=== PATIENT | male | born 1945 | race African-American/Black ===

== ENCOUNTER 2019-09-04 23:58 | Inpatient (IN) | payer MEDICARE, MEDICAID ==
[~2019-09-04] VITALS: Ht 193 cm; Wt 88.2 kg
--- NOTE | 2019-09-05 00:09 | Emergency Room Report ---
History of Present Illness General Chief Complaint: Dyspnea/Respdistress Source: Patient Present Illness HPI Disclaimer: Please note that this report is being documented using DRAGON technology. This can lead to erroneous entry secondary to incorrect interpretation by the dictating instrument. HPI: 74-year-old male with a history of CAD, CHF status post AICD, hypertension , hyperlipidemia, emphysema presents for evaluation of shortness of breath. Symptoms began approximately 24 hours ago. Notes worsening shortness of breath over the past day without chest pain or palpitations. Feels that he cannot catch a deep breath. Notes a new nonproductive cough over the past few days without fever or chills. Denies any nasal congestion, sore throat. Has been compliant with his Lasix. Does note lower extremity pitting edema worsening over the past week. Has been without his nebulizer machine for some time. PMH: Hypertension, hyperlipidemia, CAD, CHF PSH: Hemicolectomy, AICD placement Allergies: Lisinopril Social Hx: Former smoker Allergies: Coded Allergies: LISINOPRIL (Verified Allergy, Unknown, 09/04/19) Nursing Documentation-PMH Past Medical History: No History, Except For Hx Cardiac Problems: Yes - Pacemaker Hx Hypertension: Yes Review of Systems All Other Systems: negative except mentioned in HPI Physical Exam Vital Signs Date Time Temp Pulse Resp B/P (MAP) Pulse Ox O2 Delivery O2 Flow Rate FiO2 09/04/19 23:53 98.2 91 18 110/81 (91) 98 Room Air General: Awake and alert, no acute distress HEENT: NC/AT. EOMI. Chest wall: AICD palpable in left upper chest. No tenderness Cardiovascular: RRR. S1 and S2 normal. No murmur appreciated Resp: Mild tachypnea. Normal work of breathing. No cough, wheezing or crackles appreciated Abdomen: Abdomen is soft, nondistended. Nontender Skin: Intact. No abrasions, laceration or rash over the exposed skin MSK: Normal tone and bulk. Moving all extremities. No obvious deformity. Neuro: Awake and alert. Mentating appropriately. Medical Decision Making Diagnostic Impression: Primary Impression: ASHLEY (acute kidney injury) Additional Impressions: CHF exacerbation Hypokalemia ER Course 74-year-old male with history of CAD, CHF, emphysema presents for evaluation of shortness of breath and worsening pedal edema over the 1 week. Differential includes but is not limited to CHF exacerbation, COPD exacerbation, ACS, pneumonia, bronchitis, viral syndrome, asthma exacerbation. Arrives with stable vital signs and is chest pain-free. Received 1 DuoNeb en route with improvement. We will start broad metabolic infectious work-up. Will obtain EKG , x-ray, labs including troponin and BN peptide. We will treat with 40 mg Lasix given his pedal edema and his shortness of breath. Laboratory Tests Test 09/05/19 00:09 White Blood Count 7.4 K/UL (4.8-10.8) Red Blood Count 4.45 M/UL (4.70-6.10) L Hemoglobin 12.4 G/DL (14.2-18.0) L Hematocrit 37.7 % (42.0-52.0) L Mean Corpuscular Volume 85 FL (80-99) Mean Corpuscular Hemoglobin 27.9 PG (27.0-31.0) Mean Corpuscular Hemoglobin Concent 32.9 G/DL (32.0-36.0) Red Cell Distribution Width 15.6 % (11.6-14.8) H Platelet Count 255 K/UL (150-450) Mean Platelet Volume 7.1 FL (6.5-10.1) Neutrophils (%) (Auto) 59.9 % (45.0-75.0) Lymphocytes (%) (Auto) 24.8 % (20.0-45.0) Monocytes (%) (Auto) 10.7 % (1.0-10.0) H Eosinophils (%) (Auto) 3.3 % (0.0-3.0) H Basophils (%) (Auto) 1.3 % (0.0-2.0) Sodium Level 139 MMOL/L (136-145) Potassium Level 2.8 MMOL/L (3.5-5.1) L Chloride Level 101 MMOL/L (98-107) Carbon Dioxide Level 29 MMOL/L (21-32) Anion Gap 9 mmol/L (5-15) Blood Urea Nitrogen 21 mg/dL (7-18) H Creatinine 1.6 MG/DL (0.55-1.30) H Estimate Glomerular Filtration Rate mL/min (>60) Glucose Level 90 MG/DL (74-106) Calcium Level 9.3 MG/DL (8.5-10.1) Total Bilirubin 1.0 MG/DL (0.2-1.0) Aspartate Amino Transferase (AST) 41 U/L (15-37) H Alanine Aminotransferase (ALT) 37 U/L (12-78) Alkaline Phosphatase 176 U/L (46-116) H Troponin I 0.036 ng/mL (0.000-0.056) Pro-B-Type Natriuretic Peptide 6350 pg/mL (0-125) H Total Protein 7.2 G/DL (6.4-8.2) Albumin 3.4 G/DL (3.4-5.0) Globulin 3.8 g/dL Albumin/Globulin Ratio 0.9 (1.0-2.7) L EKG Diagnostic Results EKG Time: 00:10 Rate: normal Rhythm: other - Paced Other Impression Paced rhythm, normal rate Rhythm Strip Diag. Results Rhythm Strip Time: 00:10 EP Interpretation: yes Rate: 70s Rhythm: other - Paced rhythm Chest X-Ray Diagnostic Results Chest X-Ray Diagnostic Results : Chest X-Ray Ordered: Yes # of Views/Limited/Complete: 1 View Indication: Shortness of Breath EP Interpretation: Yes Interpretation: no consolidation, other - Bilateral interstitial edema. Possible small effusions bilaterally. Impression: Other - Interstitial edema. Reevaluation Time: 01:09 Last Vital Signs Date Time Temp Pulse Resp B/P (MAP) Pulse Ox O2 Delivery O2 Flow Rate FiO2 09/04/19 23:53 98.2 91 18 110/81 (91) 98 Room Air Reevaluation Impression Chest x-ray consistent with CHF exacerbation. EKG is paced therefore difficult to interpret ischemia. Troponin at 0.036 and the patient is chest pain free. Peptide elevated at 6300. Labs also show an acute kidney injury with a creatinine of 1.6 and a BUN of 21 as well as a hypokalemia with a potassium of 2.8. Patient received Lasix on arrival and will give potassium oral supplements at this time. Diuresing well. Vital signs improving. No longer tachycardic or tachypneic. Patient will be admitted to telemetry for treatment Disposition: ADMITTED INPATIENT Condition: Serious Obinna Cordova MD Sep 05, 2019 00:09
--- NOTE | 2019-09-05 00:10 | NUR ---
ED Nurse Note: pt presents to ED via ambulance RA 69 c/o dyspnea and SOB x 1 day. pt states that he uses a nebulizer but did not have access to one today when the SOB started. pt also has bilat swelling of lower extremities. pt denies any px, N/V/D, or fevers. pt has bilat wheezes heard on auscultation, pedal pulses of lower extremities were palpable but weak.
--- NOTE | 2019-09-05 00:20 | NUR ---
ED Nurse Note: pt also c/o L side px in the area of an operation he had in 2009. pt reports that the px is chronic and that it comes and goes
[2019-09-05 00:24] VITALS: BP 110/81
[2019-09-05] MEDS ORDERED: ISOSORBIDE DINI40 MG ORAL (00:28)
[2019-09-05] MEDS ORDERED: ESCITALOPRAM OX20 MG ORAL (00:28)
[2019-09-05] MEDS ORDERED: CARVEDILOL3.125 MG ORAL (00:28)
[2019-09-05] MEDS ORDERED: ELIQUIS5 MG PO ×2 (00:28→05:31)
[2019-09-05] MEDS ORDERED: FUROSEMIDE40 MG ORAL (00:28)
[2019-09-05] MEDS ORDERED: ONDANSETRON ODT4 MG BC (00:28)
[2019-09-05] MEDS ORDERED: METOLAZONE2.5 MG PO ×2 (00:28→05:31)
[2019-09-05] MEDS ORDERED: CATAPRES0.1 MG ORAL (00:28)
[2019-09-05] MEDS ORDERED: KLOR-CON M2020 MEQ ORAL (00:28)
[2019-09-05 00:41] LABS: BASOPHILS % (AUTO) 1.3 % (0.0-2.0); EOSINOPHILS % (AUTO) 3.3 % (0.0-3.0); HEMATOCRIT 37.7 % (42.0-52.0); HEMOGLOBIN 12.4 G/DL (14.2-18.0); LYMPHOCYTES % (AUTO) 24.8 % (20.0-45.0); MEAN CORPUSCULAR VOLUME 85 FL (80-99); MONOCYTES % (AUTO) 10.7 % (1.0-10.0); NEUTROPHILS % (AUTO) 59.9 % (45.0-75.0); PLATELET COUNT 255 K/UL (150-450); RED BLOOD COUNT 4.45 M/UL (4.70-6.10); RED CELL DISTRIBUTION WIDTH 15.6 % (11.6-14.8); WHITE BLOOD COUNT 7.4 K/UL (4.8-10.8)
[2019-09-05 00:50] LABS: ALANINE AMINOTRANSFERASE 37 U/L (12-78); ALBUMIN 3.4 G/DL (3.4-5.0); ALBUMIN/GLOBULIN RATIO 0.9 (1.0-2.7); ALKALINE PHOSPHATASE 176 U/L (46-116); ANION GAP 9 mmol/L (5-15); ASPARTATE AMINO TRANSFERASE 41 U/L (15-37); BLOOD UREA NITROGEN 21 mg/dL (7-18); CALCIUM 9.3 MG/DL (8.5-10.1); CARBON DIOXIDE 29 MMOL/L (21-32); CHLORIDE 101 MMOL/L (98-107); CREATININE 1.6 MG/DL (0.55-1.30); POTASSIUM 2.8 MMOL/L (3.5-5.1); SODIUM 139 MMOL/L (136-145)
[2019-09-05 02:31] VITALS: BP 102/68
--- NOTE | 2019-09-05 02:31 | NUR ---
ED Nurse Note: pt is in his bed with his eyes closed, he does not appear to be in any distress at this time. breathing is even and non-labored, VSS. will continue to monitor
--- NOTE | 2019-09-05 03:59 | NUR ---
ED Nurse Note: report given to STEPHANI Rizvi. will bring pt up in 5 minutes per request of RN to prepare room
--- NOTE | 2019-09-05 04:10 | NUR ---
NURSE NOTES: received pt from Jewels STYLES from ER department. pt is AO x4, and VSS (RA 95%, BP 112/85, RR 20, HR 85). monitoring engineer on, changed gown, belonging list checked and pt signed paper.Bilateral lung sounds clear and diminished on bases. bilateral hands warehouseman are 4/5, pt able to ambulates to the toilet. bed at the lowest position, alarmed, and locked. call light within reach. will continue to monitor pt with plan of care.
--- NOTE | 2019-09-05 04:32 | NUR ---
NURSE NOTES: left message to Dr. Felder to obtain the admission orders. will wait for call back.
[2019-09-05] MEDS ORDERED: ZUPLENZ4 M1 ORAL (05:31)
[2019-09-05] MEDS ORDERED: CLONIDINE HCL0.1 MG PO (05:31)
[2019-09-05] MEDS ORDERED: MIRTAZAPINE15 M3 ORAL (05:31)
[2019-09-05] MEDS ORDERED: LEXAPRO20 MG ORAL (05:31)
[2019-09-05] MEDS ORDERED: ISOSORBIDE DINIT5 MG ORAL (05:31)
[2019-09-05] MEDS ORDERED: POTASSIUM CHLO20 ME2 ORAL (05:31)
[2019-09-05 06:13] LABS: ALANINE AMINOTRANSFERASE 31 U/L (12-78); ALBUMIN 3.1 G/DL (3.4-5.0); ALBUMIN/GLOBULIN RATIO 0.9 (1.0-2.7); ALKALINE PHOSPHATASE 154 U/L (46-116); ANION GAP 10 mmol/L (5-15); ASPARTATE AMINO TRANSFERASE 34 U/L (15-37); BILIRUBIN,TOTAL 1.2 MG/DL (0.2-1.0); BLOOD UREA NITROGEN 20 mg/dL (7-18); CALCIUM 9.2 MG/DL (8.5-10.1); CARBON DIOXIDE 27 MMOL/L (21-32); CHLORIDE 102 MMOL/L (98-107); CREATININE 1.4 MG/DL (0.55-1.30); SODIUM 139 MMOL/L (136-145)
[2019-09-05 06:17] LABS: POTASSIUM 2.4 MMOL/L (3.5-5.1)
[2019-09-05 06:20] LABS: BILIRUBIN,DIRECT 0.5 MG/DL (0.0-0.3)
--- NOTE | 2019-09-05 06:32 | NUR ---
NURSE NOTES: left voice mail regarding low potassium 2.4 critical result and magnesium 1.5. will wait for call back.
--- NOTE | 2019-09-05 06:56 | NUR ---
NURSE NOTES: Dr. Hoffman aware pt is on Kdur 40meq x2 aday. and still Dr. Hoffman wants to admisniter 80meq Kdur extra today. noted and will carry out.
--- NOTE | 2019-09-05 07:33 | NUR ---
NURSE NOTES: RECEIVED REPORT FROM VIKTORIA HERNANDEZ RN. PT IN BED, AWAKENS TO NAME, A/OX4. NO C/O PAIN, MILD SOB, SATING MID 90'S. AFEBRILE. V PACED, AICD. ON MONITOR. DIMINISHED BILATERAL BREATH SOUNDS. ABDOMEN FLAT, BOWEL SOUNDS PRESENT. URINAL AT BEDSIDE. SKIN INTACT. RT FA 20G, TKO CALL LIGHT IN REACH. WILL CONTINUE TO MONITOR PT.
--- NOTE | 2019-09-05 07:34 | NUR ---
HAND-OFF: Report given to Rachel Laura RN. pt is in stable condition.
[2019-09-05 08:00] VITALS: BP 105/70
[2019-09-05] MEDS: Carvedilol 6.25mg Tab ORAL SCH ×2 (09:00→22:18)
[2019-09-05] MEDS: Eliquis 5mg tablet ORAL SCH ×2 (09:02→17:03)
[2019-09-05 10:26] LABS: CHOLESTEROL 153 MG/DL (< 200); HDL CHOLESTEROL 56 MG/DL (40-60); TRIGLYCERIDES 71 MG/DL (30-150)
--- NOTE | 2019-09-05 10:30 | NUR ---
NURSE NOTES: MD NUGENT, HERE TO SEE PT. WILL PLACE OWN ORDER. INFORM OF TROPOIN TREND 0.040, K 2.4 MG 15
--- NOTE | 2019-09-05 11:00 | NUR ---
NURSE NOTES: SHADY CLAROS HERE TO DO 2 D ECHO
[2019-09-05] MEDS: Albuterol/Ipratropium 3ml neb HHN SCH ×4 (11:15→23:13)
--- NOTE | 2019-09-05 11:41 | Diagnostic Imaging Report ---
Indication: Shortness of breath for one day Technique: One view of the chest Comparison: none Findings: There is cardiomegaly. There is a left chest bifocal AICD. There is evidence of prior chest surgery. There is bilateral diffuse interstitial congestion. The pleural spaces are clear. Impression: Cardiomegaly and diffuse bilateral interstitial edema Other findings as noted
[2019-09-05 12:00] VITALS: BP 123/68
--- NOTE | 2019-09-05 12:30 | NUR ---
NURSE NOTES: CALLED MD NUGENT REGARDING PT ABG RESULTS , NO NEW ORDERS AT THI TIME.
--- NOTE | 2019-09-05 15:00 | History and Physical Report ---
DATE OF ADMISSION: 09/05/2019 CHIEF COMPLAINT: CHF exacerbation. HISTORY OF PRESENT ILLNESS: The patient is a 74-year-old male. He has a history of hypertensive heart disease, congestive heart failure, and COPD, presented with complaints of two to three days of progressive shortness of breath. According to the patient, he has had worsening shortness of breath for the last several days. He denies any fever or chills. He has had no cough. He denies any medication or dietary noncompliance. On evaluation in the emergency room, his natriuretic peptide level was elevated at 6300. He had x-ray evidence of pulmonary edema. He has been started on intravenous Lasix and is now admitted for further evaluation and care. PAST MEDICAL HISTORY: As above. PAST SURGICAL HISTORY: Includes a pacemaker. CURRENT MEDICATIONS: Reconciled and reviewed. ALLERGIES: Include KARIME inhibitors. FAMILY HISTORY: Noncontributory. SOCIAL HISTORY: The patient was a previous smoker but quit. No alcohol. No drugs. REVIEW OF SYSTEMS: GENERAL: No fever or chills. HEENT: No headaches or visual changes. CARDIOPULMONARY: No chest pain. Positive shortness of breath. No cough. GASTROINTESTINAL: No nausea or vomiting. GENITOURINARY: No urgency or frequency. MUSCULOSKELETAL: No joint pain or swelling. NEUROLOGIC: No evidence of seizures. PHYSICAL EXAMINATION: VITAL SIGNS: Temperature is 98 degrees, blood pressure 110/81, pulse 91, and respirations 18. GENERAL: The patient is well developed, in no apparent distress. HEART: Regular rate and rhythm. LUNGS: Significant diminished breath sounds at the bases. ABDOMEN: Soft, nontender, and nondistended. EXTREMITIES: Significant for 1+ pitting edema. LABORATORY AND DIAGNOSTIC DATA: Labs show sodium 139, potassium 2.8, chloride 101, bicarb 29, BUN 21, and creatinine 1.6. Natriuretic peptide level is 6300. Troponin is 0.036. EKG showed a paced rhythm. ASSESSMENT: This is a 74-year-old male with chronic obstructive pulmonary disease, congestive heart failure, hypertension, and pacemaker, admitted with complaints of shortness of breath secondary to congestive heart failure exacerbation. PLAN: 1. Intravenous Lasix. 2. Monitor electrolytes and replace as needed. 3. Supplemental oxygen. 4. Check a venous duplex of the legs. 5. Cardiology consult is pending. 6. We will follow the patient's echo. Mark Hoffman M.D. DR: BRIGIDO JOB#: [id number] CC:
--- NOTE | 2019-09-05 15:40 | NUR ---
NURSE NOTES: RBrianaT HENRI, PT C/O SOB, PT PLACED ON VENTURI MASK 55%, 4L., W/ BREATHING TREATMENT. SATING 90-94%. [id number]
[2019-09-05] MEDS ORDERED: Solu-MEDROL 125mg Inj IVP SCH (16:30)
--- NOTE | 2019-09-05 16:47 | Diagnostic Imaging Report ---
Indication: Shortness of breath Technique: 2 views of the chest Comparison: 14 hours earlier Findings: . Again demonstrated is bilateral interstitial edema, appearing slightly improved with less of an airspace consolidation as compared previously. The heart remains enlarged. Postsurgical changes persist as well as an AICD. There is very slight blunting of the posterior costophrenic sulci, could indicate trace pleural fluid bilaterally. Impression: Slightly improved interstitial and airspace congestion, over 14 hours Possible trace bilateral pleural effusions Other findings as noted
--- NOTE | 2019-09-05 18:00 | NUR ---
NURSE NOTES: PT PLACED ON 4L NC, W/ COOL AROESOL. PT STATES BREATHING BETTER, NO C/O SOB. EATING DINNER.
[2019-09-05 18:52] LABS: ANION GAP 8 mmol/L (5-15); BLOOD UREA NITROGEN 23 mg/dL (7-18); CARBON DIOXIDE 31 MMOL/L (21-32); CHLORIDE 102 MMOL/L (98-107); CREATININE 1.6 MG/DL (0.55-1.30); POTASSIUM 3.4 MMOL/L (3.5-5.1); SODIUM 141 MMOL/L (136-145)
--- NOTE | 2019-09-05 19:20 | NUR ---
NURSE NOTES: Received report from Anny Fuentes RN. Pt in stable condition, A&Ox4, O2 @ 2 LPM via NC. V paced per monitor, pt denies any pain or distress at this time. Bed in lowest position, bed alarm within reach, bed alarm armed. Pt encouraged to use urinal and use call light if assistance is needed, verbalized understanding. Will continue to monitor closely.
[2019-09-05] MEDS ORDERED: Heparin 5000 units/ml inj SUBQ SCH (21:00)
--- NOTE | 2019-09-06 02:15 | Consultation ---
DATE OF CONSULTATION: 09/05/2019 CARDIOLOGY CONSULTATION CONSULTING PHYSICIAN: Alex Felder M.D. REQUESTING PHYSICIAN: Mark Hoffman M.D. REASON: Congestive heart failure. HISTORY OF PRESENT ILLNESS: This is a 74-year-old male. He has a longstanding history of hypertensive heart disease with congestive heart failure and COPD. He has had progressive shortness of breath for the past several days. He has not had any fever, chills, cough, or sputum production. He has been compliant with medication and dietary restrictions. He has not had any chest pain. In the emergency room, he was noted to have signs of acute congestive heart failure including radiographic and laboratory parameters. I have been asked to assist with further cardiovascular care. PAST MEDICAL HISTORY: Includes coronary artery disease, hyperlipidemia, hypertension, cardiac defibrillator, history of have hemicolectomy, etiology unclear, chronic obstructive pulmonary disease. ALLERGIES: Include angiotensin-converting enzyme inhibitors. SOCIAL HISTORY: Former smoker. No alcohol or substance abuse. MEDICATIONS: Prior to admission, reviewed and reconciled. REVIEW OF SYSTEMS: No fevers or chills. No known history of positive PPD. He has been on prednisone intermittently in the past. Not recently. He denies any history of ventilator support. Denies history of prior heart failure. He does not know if he had any irregular cardiac rhythms before. He is not on blood thinners. He had a hemicolectomy. He is not sure whether he had cancer. There is no history of seizure or stroke. No history of diabetes or thyroid impairment. There is no history of prostate cancer or elevated PSA. PHYSICAL EXAMINATION: VITAL SIGNS: Blood pressure 110/80, pulse 91, respirations 18, and afebrile. NECK: Jugular venous pressure elevated. LUNGS: With bilateral breath sounds and rales. CARDIAC: Regular rhythm and rate. Normal S1, diminished S2. 1/6 systolic murmur at apex. ABDOMEN: Soft. EXTREMITIES: With trace pedal edema. LABORATORY AND DIAGNOSTIC DATA: EKG reveals a paced rhythm. Chest x-ray reveals pulmonary venous congestion and cardiomegaly with small pleural effusion. White count 7.4, hemoglobin 12.4. Sodium 139, potassium 2.4, bicarb 27, BUN 20, creatinine 1.4. Magnesium 1.5. Albumin 3.1. Total cholesterol 153. IMPRESSION: 1. Acute on chronic systolic and diastolic congestive heart failure. 2. Cardiac defibrillator. 3. Hypokalemia. 4. Chronic kidney disease. 5. Hypomagnesemia. 6. Chronic obstructive pulmonary disease with exacerbation. 7. Mild protein-calorie malnutrition. 8. Cardiomyopathy. PLAN: 1. Replace potassium and magnesium intravenously diuresis. 2. Anti-failure regimen. 3. Echocardiogram. 4. Inhaled bronchodilators. 5. Intravenous steroids. 6. Full anticoagulation. 7. We will attempt to interrogate defibrillator once device brand is made known. Alex Felder M.D. DR: MAXIME JOB#: [id number] CC:
[2019-09-06] MEDS: Albuterol/Ipratropium 3ml neb HHN SCH ×6 (02:22→23:00)
[2019-09-06 05:17] LABS: ALANINE AMINOTRANSFERASE 27 U/L (12-78); ALBUMIN 2.8 G/DL (3.4-5.0); ALBUMIN/GLOBULIN RATIO 0.8 (1.0-2.7); ALKALINE PHOSPHATASE 139 U/L (46-116); ANION GAP 7 mmol/L (5-15); ASPARTATE AMINO TRANSFERASE 25 U/L (15-37); BILIRUBIN,TOTAL 0.7 MG/DL (0.2-1.0); BLOOD UREA NITROGEN 28 mg/dL (7-18); CARBON DIOXIDE 29 MMOL/L (21-32); CHLORIDE 102 MMOL/L (98-107); CREATININE 1.7 MG/DL (0.55-1.30); POTASSIUM 3.3 MMOL/L (3.5-5.1); SODIUM 138 MMOL/L (136-145)
--- NOTE | 2019-09-06 07:35 | NUR ---
NURSE NOTES: received patient report from carolyn kitchen. patient is on bed awake. no tin acute distress. patient is with the RT. no arrythmias reported during the night. bed is low and locked for safety. will follow plan of care.
--- NOTE | 2019-09-06 07:35 | NUR ---
NURSE NOTES: Report given to Natalie Franklin RN. Pt in stable condition
[2019-09-06 08:00] VITALS: BP 124/66
--- NOTE | 2019-09-06 08:12 | General Progress Note ---
Assessment/Plan Problem List: (1) Hypokalemia ICD Codes: E87.6 - Hypokalemia SNOMED: 78922455, 6407425 (2) CHF exacerbation ICD Codes: I50.9 - Heart failure, unspecified SNOMED: 296341610, 48160850440913 (3) ASHLEY (acute kidney injury) ICD Codes: N17.9 - Acute kidney failure, unspecified SNOMED: 54171391, 1372479 Status: stable Assessment/Plan: diuresis check echo replace lytes tele Subjective ROS Limited/Unobtainable: No Constitutional: Reports: malaise, weakness HEENT: Reports: no symptoms Cardiovascular: Reports: no symptoms Respiratory: Reports: shortness of breath Gastrointestinal/Abdominal: Reports: no symptoms Genitourinary: Reports: no symptoms Neurologic/Psychiatric: Reports: no symptoms Endocrine: Reports: no symptoms Hematologic/Lymphatic: Reports: no symptoms Allergies: Coded Allergies: LISINOPRIL (Verified Allergy, Unknown, 09/04/19) All Systems: reviewed and negative except above Subjective no complaints. decreased sob. no fever or chills. Objective Last 24 Hour Vital Signs Date Time Temp Pulse Resp B/P (MAP) Pulse Ox O2 Delivery O2 Flow Rate FiO2 09/06/19 04:00 70 09/06/19 04:00 2.0 09/06/19 00:00 71 09/06/19 00:00 2.0 09/05/19 23:13 68 20 99 Nasal Cannula 2.0 28 62 18 95 09/05/19 22:18 72 110/70 09/05/19 21:00 Room Air 2.0 09/05/19 20:00 2.0 09/05/19 20:00 73 09/05/19 19:23 73 20 98 Nasal Cannula 2.0 28 69 20 96 09/05/19 16:00 2.0 09/05/19 16:00 70 09/05/19 14:44 70 20 96 Nasal Cannula 2.0 28 64 22 95 09/05/19 14:36 121/65 09/05/19 12:00 72 09/05/19 12:00 97.7 69 19 123/68 (86) 100 09/05/19 12:00 4.0 36 09/05/19 11:17 78 18 99 Nasal Cannula 2.0 28 74 18 96 09/05/19 10:00 14.0 55 09/05/19 09:00 Room Air 2.0 09/05/19 09:00 105/70 09/05/19 09:00 69 105/70 Intake and Output 09/05/19 09/06/19 19:00 07:00 Intake Total 800 ml 1200 ml Output Total 900 ml Balance -100 ml 1200 ml Intake Oral 600 ml 1200 ml IV Total 200 ml Output Urine Total 900 ml # Voids 3 Laboratory Tests 09/05/19 12:30: Arterial Blood pH 7.407, Arterial Blood Partial Pressure CO2 47.8H, Arterial Blood Partial Pressure O2 78.5, Arterial Blood HCO3 29.4H, Arterial Blood Oxygen Saturation 94.7L, Arterial Blood Base Excess 4.0H, [place] Test Positive 09/05/19 17:55: Sodium Level 141, Potassium Level 3.4L, Chloride Level 102, Carbon Dioxide Level 31, Anion Gap 8, Blood Urea Nitrogen 23H, Creatinine 1.6H, Estimat Glomerular Filtration Rate , Glucose Level 126H, Calcium Level 9.0 09/06/19 03:40: Sodium Level 138, Potassium Level 3.3L, Chloride Level 102, Carbon Dioxide Level 29, Anion Gap 7, Blood Urea Nitrogen 28H, Creatinine 1.7H, Estimat Glomerular Filtration Rate , Glucose Level 143H, Calcium Level 9.0, Magnesium Level 1.7L, Total Bilirubin 0.7, Aspartate Amino Transf (AST/SGOT) 25, Alanine Aminotransferase (ALT/SGPT) 27, Alkaline Phosphatase 139H, Total Protein 6.3L, Albumin 2.8L, Globulin 3.5, Albumin/Globulin Ratio 0.8L Height (Feet): 6 Height (Inches): 4.00 Weight (Pounds): 195 General Appearance: WD/WN, alert Neck: supple Cardiovascular: regular rhythm Respiratory/Chest: chest wall non-tender, lungs clear, normal breath sounds, no respiratory distress Abdomen: normal bowel sounds, non tender, soft, no organomegaly Edema: no edema noted Arm (L), no edema noted Arm (R), no edema noted Leg (L), no edema noted Leg (R), no edema noted Pedal (L), no edema noted Pedal (R), no edema noted Generalized Mark Hoffman MD Sep 06, 2019 08:12
--- NOTE | 2019-09-06 08:21 | NUR ---
INTER-FACILITY TRANSFER: Patient transferred to [facility], tele overflow. Report given to luis kitchen. Patient transferred with valuables and medications. Belongings verified upon transfer and given to luis kitchen.
--- NOTE | 2019-09-06 08:30 | NUR ---
NURSE NOTES: Received patient and report from STEPHANI Can via hospital bed from [facility] to TELE rm [id number]. Assessment done, patients belongings and valuables verified with Pamella STYLES. upon transfer and patient signed. hospital monitor on, vital signs taken, recorded and stable. Will continue with the plan of care.
[2019-09-06] MEDS: Solu-MEDROL 125mg Inj IVP SCH ×2 (08:56→20:39)
[2019-09-06] MEDS: Eliquis 5mg tablet ORAL SCH ×2 (08:58→18:30)
[2019-09-06] MEDS: Carvedilol 6.25mg Tab ORAL SCH ×2 (09:04→20:39)
[2019-09-06 12:00] VITALS: BP 115/76
[2019-09-06 16:00] VITALS: BP 109/68
--- NOTE | 2019-09-06 18:30 | History and Physical Report ---
DATE OF ADMISSION: 09/05/2019 REASON FOR EVALUATION: Shortness of breath and respiratory distress. HISTORY OF PRESENT ILLNESS: This is a 74-year-old male, history of hypertensive heart disease, CHF, COPD. The patient presents with worsening shortness of breath. Overall, the patient denies any fevers or chills. The patient seen, evaluated, and admitted. X-rays obtained, suggest pulmonary edema and possible airspace congestion. The patient's medications reviewed and the patient currently off antibiotics on diuresis. The patient on oxygen at present. X-ray does show pulmonary edema as mentioned. The patient's findings reviewed. No sputum production. The patient has a mild cough. The patient has no ill contacts or recent travel. PAST MEDICAL HISTORY: Notable for pacemaker, COPD, CHF, and hypertensive heart disease. MEDICATIONS: Reviewed. ALLERGIES: Reviewed. SOCIAL HISTORY: Previous heavy smoker. Nonsmoker and nondrinker at present. Retired. FAMILY HISTORY: Noncontributory as above. REVIEW OF SYSTEMS: All 10 points reviewed and otherwise negative. PHYSICAL EXAMINATION: GENERAL: A well-developed male, comfortable at present. VITAL SIGNS: Reviewed. heart rate 71, the patient's blood pressure is . HEENT: Negative. Extraocular movements are grossly intact. NECK: Supple. The patient has no jugular venous distention. LUNGS: Moderate breath sounds, bibasilar crackles. CARDIAC: S1 and S2. Regular rate and rhythm. Positive S4. Systolic murmur noted. ABDOMEN: Overall soft, nontender, nondistended. EXTREMITIES: No cyanosis or clubbing. No other changes. Mild edema noted. NEUROLOGIC: Grossly nonfocal. LABORATORY DATA: Reviewed. Hemoglobin 12.4, white count normal. Chemistries, potassium 3.3, BUN 28, creatinine 1.7, albumin is 2.8. The x-rays with evidence of pulmonary edema. IMPRESSION: 1. Respiratory distress. 2. Pulmonary edema. 3. Mild hypoxemia. 4. Mild anemia, possibly chronic renal failure. 5. Hypomagnesemia. 6. Severe protein-calorie malnutrition. RECOMMENDATIONS: Supportive care. Intravenous diuresis. Monitor x-ray for clearing. Oxygen therapy as needed. Respiratory care as needed. Followup further changes and recommendation on low-flow oxygen present and stable. We will optimize care and reassess. At present, continue Solu-Medrol, but hope to taper over the next 48 hours. Continue respiratory therapy as outlined and monitor for worsening pulmonary congestion. Real Sosa M.D. DR: MARCIAL JOB#: [id number] CC:
--- NOTE | 2019-09-06 19:10 | NUR ---
NURSE NOTES: Received report from STEPHANI Thrasher. Pt is awake, lying semi-sanders's; resting comfortably. No signs of acute distress noted. Denies any pain at this time. AOx4; able to make needs known. Checked IV site; patent and flushed. No erythema, bleeding, or infiltration noted. Bed at lowest position, brakes on, siderails up x 2. Call light within reach. Will continue to monitor.
--- NOTE | 2019-09-06 19:31 | NUR ---
HAND-OFF: Report given to STEPHANI Chapman. Endorsed plan of care.
[2019-09-06 20:33] VITALS: BP 112/67
[2019-09-07 00:08] VITALS: BP 119/62
--- NOTE | 2019-09-07 02:15 | Progress Note ---
DATE: 09/06/2019 CARDIOLOGY PROGRESS NOTE SUBJECTIVE: The patient has less shortness of breath today. He remains congested. He has been on inhaled bronchodilators and steroids. OBJECTIVE: VITAL SIGNS: Blood pressure 110/70, pulse 72, respirations 18. LUNGS: Diminished breath sounds. Few rhonchi and wheezes. CARDIAC: Regular rhythm and rate. Normal S1, S2. ABDOMEN: Soft. EXTREMITIES: No edema. LABORATORY DATA: Sodium 138, potassium 3.3, magnesium 1.7, BUN 28, creatinine 1.7. IMPRESSION: 1. Acute on chronic systolic and diastolic congestive heart failure. 2. Cardiac defibrillator. 3. Hypokalemia. 4. Chronic kidney disease. 5. Hypomagnesemia. 6. Chronic obstructive pulmonary disease exacerbation. 7. Ischemic cardiomyopathy. PLAN: 1. The patient's defibrillator will be interrogated today. 2. Potassium and magnesium replacement will be given. 3. Echocardiogram is pending. 4. Steroid therapy will be tapered. Alex Felder M.D. DR: MAXIME JOB#: [id number] CC:
[2019-09-07] MEDS: Albuterol/Ipratropium 3ml neb HHN SCH ×6 (03:27→23:16)
[2019-09-07 04:00] VITALS: BP 122/71
--- NOTE | 2019-09-07 07:11 | General Progress Note ---
Assessment/Plan Problem List: (1) Hypokalemia ICD Codes: E87.6 - Hypokalemia SNOMED: 36656272, 5126054 (2) CHF exacerbation ICD Codes: I50.9 - Heart failure, unspecified SNOMED: 307236078, 61099647590485 (3) ASHLEY (acute kidney injury) ICD Codes: N17.9 - Acute kidney failure, unspecified SNOMED: 02325548, 6566074 Status: stable Assessment/Plan: diuresis wean steroids check echo replace lytes tele Subjective ROS Limited/Unobtainable: No Constitutional: Reports: malaise, weakness HEENT: Reports: no symptoms Cardiovascular: Reports: no symptoms Respiratory: Reports: cough, shortness of breath Gastrointestinal/Abdominal: Reports: no symptoms Genitourinary: Reports: no symptoms Neurologic/Psychiatric: Reports: no symptoms Endocrine: Reports: no symptoms Hematologic/Lymphatic: Reports: no symptoms Allergies: Coded Allergies: LISINOPRIL (Verified Allergy, Unknown, 09/04/19) All Systems: reviewed and negative except above Subjective no new complaints. decreased sob. no fever or chills. Objective Last 24 Hour Vital Signs Date Time Temp Pulse Resp B/P (MAP) Pulse Ox O2 Delivery O2 Flow Rate FiO2 09/07/19 04:00 97.4 72 17 122/71 (88) 100 09/07/19 03:28 72 09/07/19 03:27 80 18 100 Nasal Cannula 2.0 28 78 18 98 09/07/19 00:08 97.7 55 18 119/62 (81) 96 09/07/19 00:00 70 09/06/19 21:00 Room Air 2.0 09/06/19 20:39 72 112/67 09/06/19 20:33 98.1 72 18 112/67 (82) 96 09/06/19 20:08 93 Nasal Cannula 2.0 28 09/06/19 20:04 54 18 95 Nasal Cannula 2.0 28 53 18 91 09/06/19 20:00 79 09/06/19 18:29 109/68 09/06/19 16:00 97.6 70 20 109/68 (82) 98 09/06/19 16:00 2.0 09/06/19 16:00 70 09/06/19 14:51 75 20 97 Nasal Cannula 2.0 28 77 20 93 09/06/19 13:07 115/76 09/06/19 12:00 71 09/06/19 12:00 97.5 69 20 115/76 (89) 97 09/06/19 12:00 2.0 09/06/19 11:32 69 18 99 Nasal Cannula 2.0 28 71 18 97 09/06/19 09:04 124/66 09/06/19 09:04 71 124/66 09/06/19 09:00 Room Air 2.0 09/06/19 08:00 72 09/06/19 08:00 2.0 09/06/19 08:00 97.2 71 20 124/66 (85) 99 09/06/19 07:43 65 18 99 Nasal Cannula 2.0 28 67 16 92 Intake and Output 09/06/19 09/07/19 18:59 06:59 Intake Total 1000 ml 480 ml Balance 1000 ml 480 ml Intake Oral 1000 ml 480 ml # Voids 3 4 Height (Feet): 6 Height (Inches): 4.00 Weight (Pounds): 194 Objective General Appearance: WD/WN, alert Neck: supple Cardiovascular: regular rhythm Respiratory/Chest: chest wall non-tender, lungs clear, normal breath sounds, no respiratory distress Abdomen: normal bowel sounds, non tender, soft, no organomegaly Edema: no edema noted Arm (L), no edema noted Arm (R), no edema noted Leg (L), no edema noted Leg (R), no edema noted Pedal (L), no edema noted Pedal (R), no edema noted Generalized Mark Hoffman MD Sep 07, 2019 07:11
--- NOTE | 2019-09-07 07:33 | NUR ---
HAND-OFF: Report given to STEPHANI Thrasher. Patient is awake sitting high-sanders's eating breakfast. In stable condition.
--- NOTE | 2019-09-07 07:35 | NUR ---
NURSE NOTES: Received patient and report from STEPHANI Elliott's in bed eating breakfast. Patient denies any pain at this time. No distress or SOB noted. Bed is in lowest position, brakes engaged for safety, call light is on, bedside table within reach. Will continue with the plan of care.
[2019-09-07 08:00] VITALS: BP 117/77
[2019-09-07 08:12] LABS: ALANINE AMINOTRANSFERASE 25 U/L (12-78); ALBUMIN 2.9 G/DL (3.4-5.0); ALBUMIN/GLOBULIN RATIO 0.8 (1.0-2.7); ALKALINE PHOSPHATASE 133 U/L (46-116); ANION GAP 8 mmol/L (5-15); ASPARTATE AMINO TRANSFERASE 25 U/L (15-37); BILIRUBIN,TOTAL 0.6 MG/DL (0.2-1.0); BLOOD UREA NITROGEN 36 mg/dL (7-18); CALCIUM 9.1 MG/DL (8.5-10.1); CARBON DIOXIDE 28 MMOL/L (21-32); CHLORIDE 102 MMOL/L (98-107); CREATININE 1.6 MG/DL (0.55-1.30); POTASSIUM 3.8 MMOL/L (3.5-5.1); SODIUM 138 MMOL/L (136-145)
[2019-09-07] MEDS: Eliquis 5mg tablet ORAL SCH ×2 (09:41→18:25)
[2019-09-07] MEDS: Carvedilol 6.25mg Tab ORAL SCH ×2 (09:44→20:21)
[2019-09-07] MEDS: Solu-MEDROL 40mg Inj IVP SCH ×2 (09:45→20:20)
--- NOTE | 2019-09-07 11:24 | Pulmonology Progress Note ---
Assessment/Plan Assessment/Plan Pulmonary Progress Note HPI: The patient is a 74-year-old male with history of hypertensive heart disease, CHF, COPD. The patient presents with worsening shortness of breath. Overall, the patient denies any fevers or chills. The patient seen, evaluated, and admitted. X-rays obtained, suggest pulmonary edema and possible airspace congestion. The patient's medications reviewed and the patient currently off antibiotics on diuresis. The patient on oxygen at present. X-ray does show pulmonary edema as mentioned. The patient's findings reviewed. No sputum production. The patient has a mild cough. The patient has no ill contacts or recent travel. PAST MEDICAL HISTORY: Notable for pacemaker, COPD, CHF, and hypertensive heart disease. MEDICATIONS: Reviewed. ALLERGIES: Reviewed. SOCIAL HISTORY: Previous heavy smoker. Nonsmoker and nondrinker at present. Retired. PHYSICAL EXAMINATION: GENERAL: A well-developed male, comfortable at present. VITAL SIGNS NOTED NECK: Supple. The patient has no jugular venous distention. LUNGS: Moderate breath sounds, bibasilar crackles. CARDIAC: S1 and S2. Regular rate and rhythm. Positive S4. Systolic murmur noted. ABDOMEN: Overall soft, nontender, nondistended. EXTREMITIES: No cyanosis or clubbing. No other changes. Mild edema noted. NEUROLOGIC: Grossly nonfocal. LABORATORY DATA NOTED: Reviewed. Hemoglobin 12.4, white count normal. Chemistries, potassium 3.3, BUN 28, creatinine 1.7, albumin is 2.8. The x-rays with evidence of pulmonary edema. IMPRESSION: 1. Respiratory distress - improving 2. Pulmonary edema. 3. Mild hypoxemia. 4. Mild anemia, possibly chronic renal failure. 5. Hypomagnesemia. 6. Severe protein-calorie malnutrition. PLAN: Supportive care. Intravenous diuresis. Monitor x-ray for clearing. Oxygen therapy as needed. Respiratory care as needed. Followup further changes and recommendation on low-flow oxygen present and stable. We will optimize care and reassess. At present, continue Solu-Medrol, but hope to taper over the next 48 hours. Continue respiratory therapy as outlined and monitor for worsening pulmonary congestion. Subjective ROS Limited/Unobtainable: No Allergies: Coded Allergies: LISINOPRIL (Verified Allergy, Unknown, 09/04/19) Objective Last 24 Hour Vital Signs Date Time Temp Pulse Resp B/P (MAP) Pulse Ox O2 Delivery O2 Flow Rate FiO2 09/07/19 09:44 71 117/72 09/07/19 09:43 117/72 09/07/19 09:00 Room Air 2.0 09/07/19 08:10 66 20 100 Nasal Cannula 2.0 28 68 20 98 09/07/19 08:09 98 Nasal Cannula 2.0 28 09/07/19 08:00 98.4 80 17 117/77 (90) 100 09/07/19 08:00 80 09/07/19 04:00 97.4 72 17 122/71 (88) 100 09/07/19 03:28 72 09/07/19 03:27 80 18 100 Nasal Cannula 2.0 28 78 18 98 09/07/19 00:08 97.7 55 18 119/62 (81) 96 09/07/19 00:00 70 09/06/19 21:00 Room Air 2.0 09/06/19 20:39 72 112/67 09/06/19 20:33 98.1 72 18 112/67 (82) 96 09/06/19 20:08 93 Nasal Cannula 2.0 28 09/06/19 20:04 54 18 95 Nasal Cannula 2.0 28 53 18 91 09/06/19 20:00 79 09/06/19 18:29 109/68 09/06/19 16:00 97.6 70 20 109/68 (82) 98 09/06/19 16:00 2.0 09/06/19 16:00 70 09/06/19 14:51 75 20 97 Nasal Cannula 2.0 28 77 20 93 09/06/19 13:07 115/76 09/06/19 12:00 71 09/06/19 12:00 97.5 69 20 115/76 (89) 97 09/06/19 12:00 2.0 09/06/19 11:32 69 18 99 Nasal Cannula 2.0 28 71 18 97 Intake and Output 09/06/19 09/07/19 19:00 07:00 Intake Total 1000 ml 480 ml Balance 1000 ml 480 ml Intake Oral 1000 ml 480 ml # Voids 3 4 Microbiology Date/Time Source Procedure Growth Status 09/05/19 04:30 Nasal Nares MRSA Culture - Final NO METHICILLIN RESISTANT STAPH AUREUS... Complete Laboratory Tests 09/07/19 06:06: Sodium Level 138, Potassium Level 3.8, Chloride Level 102, Carbon Dioxide Level 28, Anion Gap 8, Blood Urea Nitrogen 36H, Creatinine 1.6H, Estimat Glomerular Filtration Rate , Glucose Level 148H, Calcium Level 9.1, Total Bilirubin 0.6, Aspartate Amino Transf (AST/SGOT) 25, Alanine Aminotransferase (ALT/SGPT) 25, Alkaline Phosphatase 133H, Total Protein 6.6, Albumin 2.9L, Globulin 3.7, Albumin/Globulin Ratio 0.8L Current Medications Medications (Trade) Dose Ordered Sig/Raul Route PRN Reason Start Time Stop Time Status Last Admin Dose Admin Albuterol/ Ipratropium (Albuterol/ Ipratropium) 3 ml Q4HRT HHN 09/05/19 11:00 09/10/19 10:59 09/07/19 08:12 Apixaban (Eliquis) 5 mg BID ORAL 09/05/19 09:00 10/05/19 08:59 09/07/19 09:41 Carvedilol (Coreg) 6.25 mg EVERY 12 HOURS ORAL 09/05/19 09:00 10/05/19 08:59 09/07/19 09:44 Furosemide (Lasix) 40 mg DAILY IV 09/06/19 09:00 10/06/19 08:59 09/07/19 09:45 Isosorbide Dinitrate (Isordil) 40 mg THREE TIMES A DAY ORAL 09/05/19 09:00 10/05/19 08:59 09/07/19 09:43 Methylprednisolone Sodium Succinate (Solu-MEDROL) 40 mg EVERY 12 HOURS IVP 09/07/19 09:00 10/07/19 08:59 09/07/19 09:45 Potassium Chloride (K-Dur) 40 meq BID ORAL 09/05/19 09:00 10/05/19 08:59 09/07/19 09:43 Alex Castillo MD Sep 07, 2019 11:24
[2019-09-07 12:00] VITALS: BP 114/86
--- NOTE | 2019-09-07 15:30 | NUR ---
CASE MANAGEMENT:REVIEW 74 YR OLD MALE BIBA FROM HOME CC: SOB SI: CHF. ASHLEY. HYPOKALEMIA 98.3 91 18 110/81 98% ON RA H/H-12.4/37.7 K-2.8 BUN+21 CR=1.6 IS: IV LASIX K-DUR PO IV MAG SULFATE Q1HRS X2 CHEST XRAY : TO TELEMETRY DCP: FROM HOME 09/07/19 SI: COPD EXACERBATION. AC/CHR CHF ACUTE BRONCHOSPASM 97.5 70 20 113/83 95% ON 2L/NC IS: IV SOLUMEDROL Q12 IV LASIX QD DUONEB HHN Q4HRS RTC K-DUR PO BID ELIQUIS PO BID COREG PO Q12 ISORDIL PO TID : TELEMETRY STATUS DCP: FROM HOME PLAN: INTERROGATE PACEMAKER? TAPER STEROIDS?
[2019-09-07 16:00] VITALS: BP 118/62
--- NOTE | 2019-09-07 19:15 | NUR ---
NURSE NOTES: Received report from STEPHANI Thrasher. Pt is awake, lying semi-sanders's; comfortably resting. No signs of acute distress noted. Denies any pain at this time. AOx4; able to make needs known. Checked IV site; patent and flushed. No erythema, bleeding or infiltration noted. Bed at lowest position. Brakes on. Siderails up x2. Call light within reach. Will continue to monitor.
--- NOTE | 2019-09-07 19:26 | NUR ---
HAND-OFF: Report given to Adela/STEPHANI Ortega's.Patient is in stable condition.
[2019-09-07 20:00] VITALS: BP 138/96
--- NOTE | 2019-09-08 01:15 | Progress Note ---
DATE: 09/07/2019 SUBJECTIVE: The patient is slightly less short of breath but still feels poorly. He has limited ability to ambulate due to shortness of breath but he is able to lie flat. The patient's defibrillator was interrogated yesterday, no discharges were noted. Adequate battery life. PHYSICAL EXAMINATION: VITAL SIGNS: Blood pressure 122/71, pulse 72, respiratory rate 17, afebrile. LUNGS: Diminished breath sounds. Few rhonchi. HEART: Regular rhythm and rate. Normal S1, S2. ABDOMEN: Soft. No edema. LABORATORY AND DIAGNOSTIC DATA: Cultures are negative. Sodium 138, potassium 3.8, bicarb 28, BUN 36, creatinine 1.6, glucose 148. Albumin 2.9. IMPRESSION: 1. COPD with acute exacerbation. 2. Acute bronchospasm. 3. Acute on chronic diastolic and systolic congestive heart failure. 4. Cardiac defibrillator. 5. Chronic kidney disease. 6. Hypomagnesemia, corrected. 7. Ischemic heart disease with stable angina. PLAN: 1. Steroids with taper. 2. Diuresis. 3. Recheck magnesium level. 4. Trend natriuretic peptide assay. 5. Follow up echocardiogram. Alex Felder M.D. DR: Alicia JOB#: [id number] CC:
[2019-09-08] MEDS: Albuterol/Ipratropium 3ml neb HHN SCH ×6 (03:41→23:47)
[2019-09-08 04:00] VITALS: BP 113/83
--- NOTE | 2019-09-08 07:10 | NUR ---
HAND-OFF: Report given to STEPHANI Rodríguez. Pt is awake and in stable condition. Plan of care endorsed.
--- NOTE | 2019-09-08 07:30 | NUR ---
NURSE NOTES: Received pt awake and alert is eating breakfast. pt has intact iv access SL. No complain of pain at this moment, all needs attended, bed is locked and is in the lowest position, call light within easy reach. will continue to monitor.
--- NOTE | 2019-09-08 07:37 | General Progress Note ---
Assessment/Plan Problem List: (1) Hypokalemia ICD Codes: E87.6 - Hypokalemia SNOMED: 25943315, 6488981 (2) CHF exacerbation ICD Codes: I50.9 - Heart failure, unspecified SNOMED: 936943361, [id number] (3) ASHLEY (acute kidney injury) ICD Codes: N17.9 - Acute kidney failure, unspecified SNOMED: 88848306, 7062821 Status: stable Assessment/Plan: diuresis wean steroids check echo replace lytes tele dc planning tomorrow Subjective ROS Limited/Unobtainable: No Constitutional: Reports: malaise, weakness HEENT: Reports: no symptoms Cardiovascular: Reports: no symptoms Respiratory: Reports: cough, shortness of breath, wheezing Gastrointestinal/Abdominal: Reports: no symptoms Genitourinary: Reports: no symptoms Neurologic/Psychiatric: Reports: no symptoms Endocrine: Reports: no symptoms Hematologic/Lymphatic: Reports: no symptoms Allergies: Coded Allergies: LISINOPRIL (Verified Allergy, Unknown, 09/04/19) All Systems: reviewed and negative except above Subjective no new complaints. decreased sob but still does not feel well enough to go home. no fever or chills. Objective Last 24 Hour Vital Signs Date Time Temp Pulse Resp B/P (MAP) Pulse Ox O2 Delivery O2 Flow Rate FiO2 09/08/19 04:00 97.5 70 20 113/83 (93) 95 09/08/19 03:46 70 16 98 Nasal Cannula 2.0 28 64 16 97 09/08/19 03:36 74 09/08/19 00:00 70 09/07/19 23:18 80 16 99 Nasal Cannula 2.0 28 78 16 99 09/07/19 21:00 Room Air 2.0 09/07/19 20:21 70 115/74 09/07/19 20:00 98.0 80 22 138/96 (110) 100 09/07/19 20:00 70 09/07/19 19:26 66 18 99 Room Air 21 65 18 97 09/07/19 19:25 97 Room Air 21 09/07/19 18:25 118/62 09/07/19 16:00 71 09/07/19 16:00 98.1 72 17 118/62 (80) 99 09/07/19 15:57 70 20 99 Nasal Cannula 2.0 28 66 20 97 09/07/19 13:38 114/86 09/07/19 12:12 75 20 99 Nasal Cannula 2.0 28 76 20 99 09/07/19 12:00 72 09/07/19 12:00 97.9 73 17 114/86 (95) 99 09/07/19 09:44 71 117/72 09/07/19 09:43 117/72 09/07/19 09:00 Room Air 2.0 09/07/19 08:10 66 20 100 Nasal Cannula 2.0 28 68 20 98 09/07/19 08:09 98 Nasal Cannula 2.0 28 09/07/19 08:00 98.4 80 17 117/77 (90) 100 09/07/19 08:00 80 Intake and Output 09/07/19 09/08/19 19:00 07:00 Intake Total 680 ml 480 ml Balance 680 ml 480 ml Intake Oral 680 ml 480 ml # Voids 3 3 Laboratory Tests 09/08/19 06:03: Sodium Level [Pending], Potassium Level [Pending], Chloride Level [Pending], Carbon Dioxide Level [Pending], Blood Urea Nitrogen [Pending], Creatinine [ Pending], Estimat Glomerular Filtration Rate [Pending], Glucose Level [Pending] , Calcium Level [Pending], Magnesium Level [Pending], Total Bilirubin [Pending] , Aspartate Amino Transf (AST/SGOT) [Pending], Alanine Aminotransferase (ALT/ SGPT) [Pending], Alkaline Phosphatase [Pending], Pro-B-Type Natriuretic Peptide [Pending], Total Protein [Pending], Albumin [Pending], Globulin [Pending] Height (Feet): 6 Height (Inches): 4.00 Weight (Pounds): 194 Objective General Appearance: WD/WN, alert Neck: supple Cardiovascular: regular rhythm Respiratory/Chest: chest wall non-tender, lungs clear, normal breath sounds, no respiratory distress Abdomen: normal bowel sounds, non tender, soft, no organomegaly Edema: no edema noted Arm (L), no edema noted Arm (R), no edema noted Leg (L), no edema noted Leg (R), no edema noted Pedal (L), no edema noted Pedal (R), no edema noted Generalized Mark Hoffman MD Sep 08, 2019 07:37
[2019-09-08 08:00] VITALS: BP 128/77
[2019-09-08 08:04] LABS: ALANINE AMINOTRANSFERASE 28 U/L (12-78); ALBUMIN 2.9 G/DL (3.4-5.0); ALBUMIN/GLOBULIN RATIO 0.9 (1.0-2.7); ALKALINE PHOSPHATASE 141 U/L (46-116); ANION GAP 10 mmol/L (5-15); ASPARTATE AMINO TRANSFERASE 24 U/L (15-37); BILIRUBIN,TOTAL 0.6 MG/DL (0.2-1.0); BLOOD UREA NITROGEN 39 mg/dL (7-18); CARBON DIOXIDE 27 MMOL/L (21-32); CHLORIDE 100 MMOL/L (98-107); CREATININE 1.6 MG/DL (0.55-1.30); POTASSIUM 3.7 MMOL/L (3.5-5.1); SODIUM 137 MMOL/L (136-145)
[2019-09-08] MEDS: Eliquis 5mg tablet ORAL SCH ×2 (09:07→17:12)
[2019-09-08] MEDS: Carvedilol 6.25mg Tab ORAL SCH ×2 (09:08→21:33)
[2019-09-08] MEDS: Solu-MEDROL 40mg Inj IVP SCH (09:08)
--- NOTE | 2019-09-08 09:13 | NUR ---
CASE MANAGEMENT:REVIEW 09/08/19 SI: CHF EXACERBATION. ASHLEY. HYPOKALEMIA 98.1 66 19 128/77 98% ON 2L/NC BUN+39 CR+1.6 BNP+3153 IS: IV SOLUMEDROL QD IV LASIX QD DUONEB HHN Q4HRS RTC K-DUR PO BID ELIQUIS PO BID COREG PO Q12 ISORDIL PO TID : TELEMETRY STATUS DCP: PATIENT IS FROM HOME PLAN: TAPER STEROIDS WEAN O2 IF POSSIBLE CONTINUE INH TREATMENTS
[2019-09-08] MEDS: Guaifenesin/DM 10ml syrup ORAL SCH ×4 (11:28→21:00)
[2019-09-08 12:00] VITALS: BP 104/77
[2019-09-08 16:00] VITALS: BP 114/79
--- NOTE | 2019-09-08 17:26 | NUR ---
NURSE NOTES: 11 beats of VT, called and left message for Md Felder
--- NOTE | 2019-09-08 17:54 | Pulmonology Progress Note ---
Assessment/Plan Assessment/Plan Pulmonary Progress Note HPI: The patient is a 74-year-old male with history of hypertensive heart disease, CHF, COPD. The patient presents with worsening shortness of breath. Overall, the patient denies any fevers or chills. The patient seen, evaluated, and admitted. X-rays obtained, suggest pulmonary edema and possible airspace congestion. The patient's medications reviewed and the patient currently off antibiotics on diuresis. The patient on oxygen at present. X-ray does show pulmonary edema as mentioned. The patient's findings reviewed. No sputum production. The patient has a mild cough. The patient has no ill contacts or recent travel. PAST MEDICAL HISTORY: Pacemaker, COPD, CHF, and hypertensive heart disease. SOCIAL HISTORY: Previous heavy smoker. Nonsmoker and nondrinker at present. Retired. PHYSICAL EXAMINATION: Vital signs noted GENERAL: A well-developed male, comfortable at present. VITAL SIGNS NOTED NECK: Supple. The patient has no jugular venous distention. LUNGS: Moderate breath sounds, bibasilar crackles. CARDIAC: S1 and S2. Regular rate and rhythm. Positive S4. Systolic murmur noted. ABDOMEN: Overall soft, nontender, nondistended. EXTREMITIES: No cyanosis or clubbing. No other changes. Mild edema noted. NEUROLOGIC: Grossly nonfocal. LABORATORY DATA NOTED: Reviewed. Hemoglobin 12.4, white count normal. Chemistries, potassium 3.3, BUN 28, creatinine 1.7, albumin is 2.8. The x-rays with evidence of pulmonary edema. IMPRESSION: 1. Respiratory distress - improving 2. Pulmonary edema. 3. Mild hypoxemia. 4. Mild anemia, possibly chronic renal failure. 5. Severe protein-calorie malnutrition. PLAN: Supportive care. Intravenous diuresis. Monitor x-ray for clearing. Oxygen therapy as needed. Respiratory care as needed. Followup further changes and recommendation on low-flow oxygen present and stable. We will optimize care and reassess. At present, continue Solu-Medrol, but hope to taper over the next 48 hours. Continue respiratory therapy as outlined and monitor for worsening pulmonary congestion. Subjective ROS Limited/Unobtainable: No Allergies: Coded Allergies: LISINOPRIL (Verified Allergy, Unknown, 09/04/19) Objective Last 24 Hour Vital Signs Date Time Temp Pulse Resp B/P (MAP) Pulse Ox O2 Delivery O2 Flow Rate FiO2 09/08/19 17:14 114/79 09/08/19 16:00 98.7 79 18 114/79 (91) 98 09/08/19 15:56 77 09/08/19 15:25 75 18 100 Nasal Cannula 2.0 28 73 18 97 09/08/19 13:00 104/77 09/08/19 12:00 97.8 69 18 104/77 (86) 99 09/08/19 11:44 71 09/08/19 11:04 68 20 98 Nasal Cannula 2.0 28 71 20 98 09/08/19 09:08 66 128/77 09/08/19 09:07 128/77 09/08/19 08:26 Nasal Cannula 2.0 09/08/19 08:03 80 09/08/19 08:00 98.1 66 19 128/77 (94) 98 09/08/19 07:30 69 20 99 Nasal Cannula 2.0 28 67 20 98 09/08/19 07:30 97 Room Air 21 09/08/19 04:00 97.5 70 20 113/83 (93) 95 09/08/19 03:46 70 16 98 Nasal Cannula 2.0 28 64 16 97 09/08/19 03:36 74 09/08/19 00:00 70 09/07/19 23:18 80 16 99 Nasal Cannula 2.0 28 78 16 99 09/07/19 21:00 Room Air 2.0 09/07/19 20:21 70 115/74 09/07/19 20:00 98.0 80 22 138/96 (110) 100 09/07/19 20:00 70 09/07/19 19:26 66 18 99 Room Air 21 65 18 97 09/07/19 19:25 97 Room Air 21 09/07/19 18:25 118/62 Intake and Output 09/07/19 09/08/19 19:00 07:00 Intake Total 680 ml 480 ml Balance 680 ml 480 ml Intake Oral 680 ml 480 ml # Voids 3 3 Laboratory Tests 09/08/19 06:03: Sodium Level 137, Potassium Level 3.7, Chloride Level 100, Carbon Dioxide Level 27, Anion Gap 10, Blood Urea Nitrogen 39H, Creatinine 1.6H, Estimat Glomerular Filtration Rate , Glucose Level 143H, Calcium Level 9.0, Magnesium Level 1.9, Total Bilirubin 0.6, Aspartate Amino Transf (AST/SGOT) 24, Alanine Aminotransferase (ALT/SGPT) 28, Alkaline Phosphatase 141H, Pro-B-Type Natriuretic Peptide 3153H, Total Protein 6.2L, Albumin 2.9L, Globulin 3.3, Albumin/Globulin Ratio 0.9L Current Medications Medications (Trade) Dose Ordered Sig/Raul Route PRN Reason Start Time Stop Time Status Last Admin Dose Admin Albuterol/ Ipratropium (Albuterol/ Ipratropium) 3 ml Q4HRT HHN 09/05/19 11:00 09/10/19 10:59 09/08/19 15:15 Apixaban (Eliquis) 5 mg BID ORAL 09/05/19 09:00 10/05/19 08:59 09/08/19 17:12 Carvedilol (Coreg) 6.25 mg EVERY 12 HOURS ORAL 09/05/19 09:00 10/05/19 08:59 09/08/19 09:08 Furosemide (Lasix) 40 mg DAILY IV 09/06/19 09:00 10/06/19 08:59 09/08/19 09:08 Guaifenesin/ Dextromethorphan (Robitussin DM Syrup) 10 ml FOUR TIMES A DAY ORAL 09/08/19 10:45 10/08/19 10:44 09/08/19 17:14 Isosorbide Dinitrate (Isordil) 40 mg THREE TIMES A DAY ORAL 09/05/19 09:00 10/05/19 08:59 09/08/19 17:14 Methylprednisolone Sodium Succinate (Solu-MEDROL) 40 mg DAILY IVP 09/08/19 09:00 10/08/19 08:59 09/08/19 09:08 Potassium Chloride (K-Dur) 40 meq BID ORAL 09/05/19 09:00 10/05/19 08:59 09/08/19 17:13 Alex Castillo MD Sep 08, 2019 17:54
--- NOTE | 2019-09-08 19:40 | NUR ---
HAND-OFF: Report given to BERTIN STYLES. Pt is awake and stable.
--- NOTE | 2019-09-08 19:45 | NUR ---
NURSE NOTES: Received pt awake and alert sitting up in bed. pt has intact iv access SL. No complain of pain at this moment. bed is locked and is in the lowest position, call light within reach. will continue to monitor.
[2019-09-08 20:00] VITALS: BP 103/69
[2019-09-08 21:33] VITALS: BP 120/73
[2019-09-08] MEDS ORDERED: Zolpidem 5mg tab ORAL PRN (23:45)
[2019-09-09] VITALS: BP 111/87
--- NOTE | 2019-09-09 02:45 | Progress Note ---
DATE: 09/08/2019 CARDIOLOGY PROGRESS NOTE SUBJECTIVE: The patient has less shortness of breath. No fevers or chills. Still congested. Still with cough. Still not at baseline. Still not able to function at home in his mind due to shortness of breath. OBJECTIVE: VITAL SIGNS: Blood pressure 113/83, pulse 70, respirations 20, afebrile. Monitored rhythm sinus. LUNGS: Diminished breath sounds with rhonchi. CARDIAC: Regular rhythm and rate. Normal S1, S2. ABDOMEN: Soft. EXTREMITIES: With trace edema. LABORATORY DATA: Magnesium 1.9, BUN 39, creatinine 1.6, potassium 3.7. Pro-natriuretic peptide decreased to 3100. IMPRESSION: 1. Chronic obstructive pulmonary disease exacerbation. 2. Paroxysmal bronchospasm. 3. Acute bronchitis. 4. Acute on chronic renal failure. 5. Acute on chronic diastolic congestive heart failure. 6. Ischemic cardiomyopathy. 7. Hypomagnesemia, corrected. PLAN: 1. Diuresis. 2. Bronchodilators. 3. Respiratory hygiene. 4. Steroid taper as condition improves. 5. Protein supplement. 6. Monitor volume status and cardiorenal function. Alex Felder M.D. DR: MAXIME JOB#: [id number] CC:
[2019-09-09] MEDS: Albuterol/Ipratropium 3ml neb HHN SCH ×6 (03:00→23:24)
[2019-09-09 04:00] VITALS: BP 118/78
--- NOTE | 2019-09-09 07:14 | NUR ---
HAND-OFF: Report given to STEPHANI Nesbitt.
--- NOTE | 2019-09-09 07:25 | NUR ---
NURSE NOTES: Received pt awake and alert is eating breakfast. pt has intact iv access RFA 20G SL. No complain of pain at this moment, all needs attended, bed is locked and is in the lowest position, call light within easy reach. will continue to monitor.
[2019-09-09 08:00] VITALS: BP 121/78
[2019-09-09] MEDS: Guaifenesin/DM 10ml syrup ORAL SCH ×4 (08:11→21:43)
[2019-09-09] MEDS: Eliquis 5mg tablet ORAL SCH ×2 (08:11→17:23)
[2019-09-09] MEDS: Solu-MEDROL 40mg Inj IVP SCH (08:12)
[2019-09-09] MEDS: Carvedilol 6.25mg Tab ORAL SCH ×2 (08:12→21:43)
[2019-09-09 08:20] LABS: ANION GAP 10 mmol/L (5-15); BLOOD UREA NITROGEN 47 mg/dL (7-18); CALCIUM 9.3 MG/DL (8.5-10.1); CARBON DIOXIDE 28 MMOL/L (21-32); CHLORIDE 99 MMOL/L (98-107); CREATININE 1.6 MG/DL (0.55-1.30); POTASSIUM 3.6 MMOL/L (3.5-5.1); SODIUM 136 MMOL/L (136-145)
[2019-09-09 12:00] VITALS: BP 114/62
--- NOTE | 2019-09-09 15:11 | NUR ---
RD ASSESSMENT & RECOMMENDATIONS SEE CARE ACTIVITY FOR COMPLETE ASSESSMENT DAILY ESTIMATED NEEDS: Needs based on cardiac/ 88kg 25-30 kcals/kg 1571-9256 total kcals 1-1.5 g protein/kg 88-132 g total protein 20-22 mL/kg 5491-8878 total fluid mLs NUTRITION DIAGNOSIS: Decreased sodium intake needs R/T CHF dx as evidenced by elev BNP (3153), on Lasix. CURRENT DIET:NO ADDED SALT + Ensure Enlive BID as needed PO DIET RECOMMENDATIONS: LOW NA ADDITIONAL RECOMMENDATIONS: * Daily standing wt for accuracy: CHF dx, on lasix * Monitor lytes daily w/ Lasix, replete as needed * Monitor renal fxn and hydration status w/ lasix: BUN trend up, Creat 1.6 * Monitor BGs closely while on Solumedrol
--- NOTE | 2019-09-09 15:41 | NUR ---
DISCHARGE PLANNING FAXED CLINICALS TO [facility] ANTICIPATE DISCHARGE Thursday09/10/19 Addendum: 09/09/19 at 1813 by ARYA STRINGER LVN LVN RECEIVED MESSAGE FROM ERICKA AT [facility] STATING PATIENT WILL BE ACCEPTED TO ROOM 19A TOMORROW NURSING TO CALL T: [phone] TO GIVE REPORT AND CALL [facility] FOR AMBULANCE TRANSPORT
[2019-09-09 16:00] VITALS: BP 126/91
--- NOTE | 2019-09-09 19:18 | NUR ---
HAND-OFF: Report given to STEPHANI SCHUSTER. Pt is awake and stable.
--- NOTE | 2019-09-09 19:59 | NUR ---
NURSE NOTES: Received pt from STEPHANI Nesbitt. Pt asleep. Bed in lowest position. Call light within [facility]. Will continue to monitor.
[2019-09-09 20:00] VITALS: BP 113/78
--- NOTE | 2019-09-09 20:44 | Pulmonology Progress Note ---
Assessment/Plan Assessment/Plan Pulmonary Progress Note HPI: The patient is a 74-year-old male with history of hypertensive heart disease, CHF, COPD. The patient presents with worsening shortness of breath. Overall, the patient denies any fevers or chills. The patient seen, evaluated, and admitted. X-rays obtained, suggest pulmonary edema and possible airspace congestion. The patient's medications reviewed and the patient currently off antibiotics on diuresis. The patient on oxygen at present. X-ray does show pulmonary edema as mentioned. The patient's findings reviewed. No sputum production. The patient has a mild cough. The patient has no ill contacts or recent travel. PAST MEDICAL HISTORY: Pacemaker, COPD, CHF, and hypertensive heart disease. SOCIAL HISTORY: Previous heavy smoker. Nonsmoker and nondrinker at present. Retired. Much improved PHYSICAL EXAMINATION: Vital signs noted GENERAL: A well-developed male, comfortable at present. VITAL SIGNS NOTED NECK: Supple. The patient has no jugular venous distention. LUNGS: Moderate breath sounds, bibasilar crackles. CARDIAC: S1 and S2. Regular rate and rhythm. Systolic murmur noted. ABDOMEN: Overall soft, nontender, nondistended. EXTREMITIES: No cyanosis or clubbing. No other changes. Mild edema noted. NEUROLOGIC: Grossly nonfocal. LABORATORY DATA NOTED: Reviewed. Hemoglobin 12.4, white count normal. Chemistries, potassium 3.3, BUN 28, creatinine 1.7, albumin is 2.8. The x-rays with evidence of pulmonary edema. IMPRESSION: 1. Respiratory distress - improving 2. Pulmonary edema. 3. Mild hypoxemia. 4. Mild anemia, possibly chronic renal failure. 5. Severe protein-calorie malnutrition. PLAN: Supportive care. Intravenous diuresis. Monitor x-ray for clearing. Oxygen therapy as needed. Respiratory care as needed. Followup further changes and recommendation on low-flow oxygen present and stable. We will optimize care and reassess. At present, continue Solu-Medrol, but hope to taper over the next 48 hours. Continue respiratory therapy as outlined and monitor for worsening pulmonary congestion. Subjective ROS Limited/Unobtainable: No Allergies: Coded Allergies: LISINOPRIL (Verified Allergy, Unknown, 09/04/19) Objective Last 24 Hour Vital Signs Date Time Temp Pulse Resp B/P (MAP) Pulse Ox O2 Delivery O2 Flow Rate FiO2 12/20/19 20:00 97.5 71 18 113/78 (90) 100 09/09/19 19:39 75 20 100 Room Air 21 72 20 97 09/09/19 19:38 97 Room Air 21 09/09/19 17:23 126/91 09/09/19 16:00 98.4 70 20 126/91 (103) 99 09/09/19 15:29 82 09/09/19 15:15 72 20 100 Room Air 21 70 20 97 09/09/19 12:34 114/62 09/09/19 12:00 97.7 70 20 114/62 (79) 98 09/09/19 11:42 70 22 100 Room Air 21 71 22 97 09/09/19 11:36 74 09/09/19 09:00 Nasal Cannula 2.0 09/09/19 08:12 71 121/78 09/09/19 08:11 121/78 09/09/19 08:00 97.9 71 20 121/78 (92) 98 09/09/19 07:44 74 09/09/19 06:55 70 22 99 Nasal Cannula 2.0 28 70 22 98 09/09/19 06:55 98 Nasal Cannula 2.0 28 09/09/19 04:00 71 09/09/19 04:00 98.6 72 20 118/78 (91) 99 09/09/19 00:00 98.5 70 18 111/87 (95) 99 09/09/19 00:00 77 09/08/19 23:47 86 18 100 Nasal Cannula 2.0 28 82 18 98 09/08/19 21:33 98.0 71 20 120/73 (89) 100 09/08/19 21:33 71 120/73 09/08/19 21:00 Nasal Cannula 2.0 Intake and Output 09/08/19 09/09/19 19:00 07:00 Intake Total 280 ml Output Total 600 ml Balance -320 ml Intake Oral 280 ml Output Urine Total 600 ml # Voids 3 2 Laboratory Tests 09/09/19 06:20: Sodium Level 136, Potassium Level 3.6, Chloride Level 99, Carbon Dioxide Level 28, Anion Gap 10, Blood Urea Nitrogen 47H, Creatinine 1.6H, Estimat Glomerular Filtration Rate , Glucose Level 116H, Calcium Level 9.3 Current Medications Medications (Trade) Dose Ordered Sig/Raul Route PRN Reason Start Time Stop Time Status Last Admin Dose Admin Albuterol/ Ipratropium (Albuterol/ Ipratropium) 3 ml Q4HRT HHN 09/05/19 11:00 09/10/19 10:59 09/09/19 19:38 Apixaban (Eliquis) 5 mg BID ORAL 09/05/19 09:00 10/05/19 08:59 09/09/19 17:23 Carvedilol (Coreg) 6.25 mg EVERY 12 HOURS ORAL 09/05/19 09:00 10/05/19 08:59 09/09/19 08:12 Furosemide (Lasix) 40 mg DAILY ORAL 09/10/19 09:00 10/10/19 08:59 Guaifenesin/ Dextromethorphan (Robitussin DM Syrup) 10 ml FOUR TIMES A DAY ORAL 09/08/19 10:45 10/08/19 10:44 09/09/19 17:23 Isosorbide Dinitrate (Isordil) 40 mg THREE TIMES A DAY ORAL 09/05/19 09:00 10/05/19 08:59 09/09/19 17:23 Methylprednisolone Sodium Succinate (Solu-MEDROL) 40 mg DAILY IVP 09/08/19 09:00 10/08/19 08:59 09/09/19 08:12 Potassium Chloride (K-Dur) 40 meq BID ORAL 09/05/19 09:00 10/05/19 08:59 09/09/19 17:24 Zolpidem Tartrate (Ambien) 5 mg HSPRN PRN ORAL Insomnia 09/08/19 23:45 09/15/19 23:44 09/09/19 00:04 Alex Castillo MD Sep 09, 2019 20:44
[2019-09-10] VITALS: BP 106/60
[2019-09-10] MEDS: Albuterol/Ipratropium 3ml neb HHN SCH ×2 (02:39→08:11)
--- NOTE | 2019-09-10 02:45 | Progress Note ---
DATE: 09/09/2019 CARDIOLOGY PROGRESS NOTE SUBJECTIVE: ____ congestion, cough, and decreased exercise capacity from baseline, but improved. No fevers or chills. Some leg muscle aches. He remains on steroid. OBJECTIVE: VITAL SIGNS: Blood pressure 126/91, pulse 75, respiratory rate 20, oxygen saturation on room air 97%. HEENT: Normocephalic and atraumatic. Conjunctivae pink. Oropharynx clear. No thrush. No accessory muscle use. NECK: jugular venous distention. LUNGS: Coarse breath sounds. Rhonchi. No wheezing. CARDIAC: Regular rhythm and rate. Normal S1 and S2 with a fourth heart sound. EXTREMITIES: Trace edema. LABORATORY DATA: BUN is 47, creatinine 1.6, and potassium 3.6. Pro-natriuretic peptide yesterday 3100. IMPRESSION: 1. Chronic obstructive pulmonary disease exacerbation, improving. 2. Paroxysmal bronchospasm, resolving. 3. Acute bronchitis. 4. Acute on chronic renal failure, improved. 5. Acute on chronic diastolic and systolic congestive heart failure. 6. Cardiac defibrillator. 7. Muscle weakness, functional decline, steroid, myositis. PLAN: 1. Bronchodilators, steroid taper. 2. Adjust cardiovascular regimen including diuretics. 3. Maximize anti-failure drugs. 4. Physical and occupational therapy. 5. Consideration for [facility] facility for a short-term rehabilitation. Alex Felder M.D. DR: BHUMI JOB#: [id number] CC:
--- NOTE | 2019-09-10 07:50 | NUR ---
NURSE NOTES: Received report from STEPHANI Melgar. The patient is resting on the bed without acute distress or shortness of breath. The patient's bed in the lowest position, call light in reach, and fall and aspiration precaution reinforced. IV site intact and patent. Per STEPHANI Melgar, the patient refused to be discharged to [facility]. Will follow up with the patient. Will continue plan of care.
--- NOTE | 2019-09-10 07:52 | NUR ---
HAND-OFF: Report given to STEPHANI Costa. Pt stable.
[2019-09-10 08:00] VITALS: BP 127/83
[2019-09-10] MEDS: Eliquis 5mg tablet ORAL SCH ×2 (08:49→17:30)
[2019-09-10] MEDS: Carvedilol 6.25mg Tab ORAL SCH ×2 (08:49→21:45)
[2019-09-10] MEDS: Furosemide 40mg tab ORAL SCH (08:50)
[2019-09-10] MEDS: Guaifenesin/DM 10ml syrup ORAL SCH ×4 (08:51→21:45)
[2019-09-10 12:00] VITALS: BP 119/77
--- NOTE | 2019-09-10 12:00 | NUR ---
NURSE NOTES: The patient is refusing to go to [facility] but would like to go back to home. However, the charge nurse figured out that the patient is homeless but stays at hotel. Social service consult for homelessness completed. Notified Dr. Felder regarding it. Asked Dr. Felder for discharge medication reconciliation. Will continue plan of care until clarification made.
--- NOTE | 2019-09-10 14:20 | NUR ---
NURSE NOTES: Dr. Felder want the primary nurse to check SpO2 in room air to find out whether the patient needs home oxygen. Will check SpO2 in room air with the patient and notify to Dr. Felder. The patient is stable without acute distress or shortness of breath. Will continue plan of care.
--- NOTE | 2019-09-10 15:10 | NUR ---
NURSE NOTES: Notified Dr. Felder that the patient's SpO2 is 97-98% in room air at sitting and walking. However, the patient still has shortness of breath. Per Dr. Felder, hold discharge until Dr. Felder checks the patient. Notified to charge nurse. Will continue plan of care.
[2019-09-10] MEDS: Albuterol/Ipratropium 3ml neb HHN PRN ×2 (15:34→23:24)
--- NOTE | 2019-09-10 15:35 | NUR ---
NURSE NOTES: Notified Dr. Felder regarding the patient's feeling of anxiety and tachypnea. Dr. Felder ordered Lorazepam 1mg PO Q12HR PRN for anxiety. Carried out the order. Will administer as ordered. Will continue plan of care.
[2019-09-10] MEDS ORDERED: LORazepam 1mg tab ORAL PRN (15:45)
[2019-09-10 16:00] VITALS: BP 129/79
--- NOTE | 2019-09-10 16:37 | Pulmonology Progress Note ---
Assessment/Plan Assessment/Plan Pulmonary Progress Note HPI: The patient is a 74-year-old male with history of hypertensive heart disease, CHF, COPD. The patient presents with worsening shortness of breath. Overall, the patient denies any fevers or chills. The patient seen, evaluated, and admitted. X-rays obtained, suggest pulmonary edema and possible airspace congestion. The patient's medications reviewed and the patient currently off antibiotics on diuresis. The patient on oxygen at present. X-ray does show pulmonary edema as mentioned. The patient's findings reviewed. No sputum production. The patient has a mild cough. The patient has no ill contacts or recent travel. PAST MEDICAL HISTORY: Pacemaker, COPD, CHF, and hypertensive heart disease. SOCIAL HISTORY: Previous heavy smoker. Nonsmoker and nondrinker at present. Retired. Much improved PHYSICAL EXAMINATION: Vital signs noted GENERAL: A well-developed male, comfortable at present. VITAL SIGNS NOTED NECK: Supple. The patient has no jugular venous distention. LUNGS: Moderate breath sounds, bibasilar crackles. CARDIAC: S1 and S2. Regular rate and rhythm. Systolic murmur noted. ABDOMEN: Overall soft, nontender, nondistended. EXTREMITIES: No cyanosis or clubbing. No other changes. Mild edema noted. NEUROLOGIC: Grossly nonfocal. LABORATORY DATA NOTED: Reviewed. Hemoglobin 12.4, white count normal. Chemistries, potassium 3.3, BUN 28, creatinine 1.7, albumin is 2.8. The x-rays with evidence of pulmonary edema. IMPRESSION: 1. Respiratory distress - improving 2. Pulmonary edema. 3. Mild hypoxemia. 4. Mild anemia, possibly chronic renal failure. 5. Severe protein-calorie malnutrition. PLAN: Supportive care. Intravenous diuresis. Monitor x-ray for clearing. Oxygen therapy as needed. Respiratory care as needed. Followup further changes and recommendation on low-flow oxygen present and stable. We will optimize care and reassess. At present, continue Solu-Medrol, but hope to taper over the next 48 hours. Continue respiratory therapy as outlined and monitor for worsening pulmonary congestion. Subjective ROS Limited/Unobtainable: No Allergies: Coded Allergies: LISINOPRIL (Verified Allergy, Unknown, 09/04/19) Objective Last 24 Hour Vital Signs Date Time Temp Pulse Resp B/P (MAP) Pulse Ox O2 Delivery O2 Flow Rate FiO2 12/21/19 15:35 69 20 100 Room Air 21 65 18 99 09/10/19 12:38 119/77 09/10/19 12:00 97.9 71 18 119/77 (91) 99 09/10/19 12:00 72 09/10/19 09:00 Nasal Cannula 2.0 09/10/19 08:50 127/83 09/10/19 08:49 73 127/83 09/10/19 08:12 96 Room Air 21 09/10/19 08:00 75 09/10/19 08:00 97.2 73 18 127/83 (98) 97 09/10/19 07:51 73 16 96 Room Air 21 71 14 94 09/10/19 04:00 70 09/10/19 02:40 77 16 97 Room Air 21 74 16 90 09/10/19 00:00 67 09/10/19 00:00 97.7 66 18 106/60 (75) 96 09/09/19 23:25 74 16 96 Room Air 21 72 16 94 09/09/19 21:43 71 113/78 09/09/19 21:00 Nasal Cannula 2.0 09/09/19 20:00 97.5 71 18 113/78 (90) 100 09/09/19 20:00 71 09/09/19 19:39 75 20 100 Room Air 21 72 20 97 09/09/19 19:38 97 Room Air 21 09/09/19 17:23 126/91 Intake and Output 09/09/19 09/10/19 19:00 07:00 Intake Total 1000 ml 360 ml Balance 1000 ml 360 ml Intake Oral 1000 ml Other 360 ml # Voids 4 1 Current Medications Medications (Trade) Dose Ordered Sig/Raul Route PRN Reason Start Time Stop Time Status Last Admin Dose Admin Albuterol/ Ipratropium (Albuterol/ Ipratropium) 3 ml Q4H PRN HHN Shortness of breath 09/10/19 15:15 09/15/19 15:14 09/10/19 15:34 Apixaban (Eliquis) 5 mg BID ORAL 09/05/19 09:00 10/05/19 08:59 09/10/19 08:49 Carvedilol (Coreg) 6.25 mg EVERY 12 HOURS ORAL 09/05/19 09:00 10/05/19 08:59 09/10/19 08:49 Furosemide (Lasix) 40 mg DAILY ORAL 09/10/19 09:00 10/10/19 08:59 09/10/19 08:50 Guaifenesin/ Dextromethorphan (Robitussin DM Syrup) 10 ml FOUR TIMES A DAY ORAL 09/08/19 10:45 10/08/19 10:44 09/10/19 12:38 Isosorbide Dinitrate (Isordil) 40 mg THREE TIMES A DAY ORAL 09/05/19 09:00 10/05/19 08:59 09/10/19 12:38 Lorazepam (Ativan) 1 mg Q12H PRN ORAL For Anxiety 09/10/19 15:45 09/17/19 15:44 09/10/19 15:52 Potassium Chloride (K-Dur) 40 meq BID ORAL 09/05/19 09:00 10/05/19 08:59 09/10/19 08:50 Prednisone (predniSONE) 20 mg DAILY ORAL 09/10/19 09:00 10/10/19 08:59 09/10/19 08:51 Zolpidem Tartrate (Ambien) 5 mg HSPRN PRN ORAL Insomnia 09/08/19 23:45 09/15/19 23:44 09/09/19 00:04 Alex Castillo MD Sep 10, 2019 16:37
--- NOTE | 2019-09-10 19:15 | NUR ---
HAND-OFF: Report given to STEPHANI Melgar. The patient is resting on the bed without acute distress or shortness of breath. The patient's bed in the lowest position, call light in reach, fall and aspiration precaution reinforced. IV site intact and patent. The patient's discharge order on hold until seen by Dr. Felder per Dr. Felder's order. Endorsed plan of care.
--- NOTE | 2019-09-10 19:42 | NUR ---
NURSE NOTES: Received pt from STEPHANI Costa. Pt asleep. Bed in lowest position. Call light within reach. Will continue to monitor.
[2019-09-10 20:00] VITALS: BP 103/52
--- NOTE | 2019-09-10 23:49 | NUR ---
NURSE NOTES: Called and left a message with Dr. Felder regarding pts request for change in frequency for ativan. Awaiting call back.
[2019-09-11] VITALS (7 sets, daily range): BP systolic 114–127; BP diastolic 68–82
[2019-09-11] MEDS: LORazepam 1mg tab ORAL PRN ×2 (00:17→14:50)
--- NOTE | 2019-09-11 05:07 | NUR ---
NURSE NOTES: Dr. Felder gave orders to send pt to [facility] in the am. He also wrote a prescription for current hospital meds in case pt changes his mind about going to [facility]. Prescription in chart. Will continue to monitor.
--- NOTE | 2019-09-11 07:00 | Progress Note ---
DATE: 09/10/2019 CARDIOLOGY PROGRESS NOTE SUBJECTIVE: The patient is not sure about going to a senior care facility, yet he has no apartment at this time and is considering going to a hotel. He still is short of breath. Oxygen saturation on room air is 98%. OBJECTIVE: VITAL SIGNS: Blood pressure 103/52, pulse 66, respirations 18, afebrile. LUNGS: Diminished breath sounds. No wheezing. Few rhonchi. CARDIAC: Regular rhythm and rate. Normal S1, S2 with a fourth heart sound. ABDOMEN: Soft. EXTREMITIES: Trace edema. IMPRESSION: 1. COPD exacerbation. 2. Acute bronchospasm. 3. Cardiomyopathy with cardiac defibrillator. 4. Acute on chronic systolic and diastolic congestive heart failure. 5. Paroxysmal atrial and ventricular ectopy. PLAN: 1. Steroid tapering. 2. Bronchodilators, respiratory hygiene. 3. Adjust diuretic dosing. 4. Maintain full anticoagulation. 5. Discharge planning in the next 24 hours. 6. The patient will reconsider senior care facility. Otherwise, we will have to allow him to go to a interim. Alex Felder M.D. DR: ODILIA JOB#: [id number] CC:
--- NOTE | 2019-09-11 07:29 | NUR ---
HAND-OFF: Report given to imtiaz Diez. pT STABLE.
--- NOTE | 2019-09-11 07:36 | NUR ---
NURSE NOTES: Received report from STEPHANI Melgar. Patient in bed resting, no active s/s cardiac, respiratory distress noticed at this time. Patient Aox4, A. fib, V pacing with HR 75. Patient on room air, IV on right FA 20g, asymptomatic, patent, intact. Endorsed prescription in the chart. Bed in lowest position, side rails upx2, call light within reach. Will continue to monitor.
[2019-09-11] MEDS: Albuterol/Ipratropium 3ml neb HHN PRN (07:57)
[2019-09-11] MEDS: Guaifenesin/DM 10ml syrup ORAL SCH ×3 (08:44→17:57)
[2019-09-11] MEDS: Eliquis 5mg tablet ORAL SCH ×2 (08:44→17:58)
[2019-09-11] MEDS: Furosemide 40mg tab ORAL SCH (08:44)
[2019-09-11] MEDS: Carvedilol 6.25mg Tab ORAL SCH (08:45)
--- NOTE | 2019-09-11 11:29 | NUR ---
NURSE NOTES: Patient explained the need of care and agreed to go SNF, but wanted to eat lunch first.
[2019-09-11] MEDS ORDERED: ELIQUIS5 MG PO (12:16)
[2019-09-11] MEDS ORDERED: FUROSEMIDE40 MG ORAL (12:17)
[2019-09-11] MEDS ORDERED: PREDNISONE10 MG ORAL (12:23)
[2019-09-11] MEDS ORDERED: ALBUTEROL SULF8.5 GM INH (12:24)
--- NOTE | 2019-09-11 12:33 | NUR ---
NURSE NOTES: Report given to STEPHANI Strong from [facility], T: [phone]. Ligia made aware ETA 1400.
--- NOTE | 2019-09-11 13:02 | NUR ---
NURSE NOTES: Dr. Felder made aware patient is still refusing to go SNF. When O2 sat checked on room air, Patient SOB, O2 sat decreased to 83%, Oxygen re-applied.
--- NOTE | 2019-09-11 13:44 | NUR ---
patient for discharge to [facility], patient agreed to go to SNF after explaining to him the need of placement to SNF, ambulance was booked for parts picker 1400, report was given by primary RN at [facility], then patient verbalized again that he does not want to go to SNF, patient easily get short of breath when he takes his O2 and he desats to 83% in RA and walked unsteady, he stated he does not want to go anywhere until he have O2, and now refusing to go to SNF. called [facility] again and spoke to Jermaine, transportation arrangement change to will call, waiting for DR shankar to call back.
--- NOTE | 2019-09-11 14:27 | NUR ---
NURSE NOTES: Dr. Felder made aware patient is refusing SNF. Per MD, if patient does not need oxygen patient can go Hotel, if patient need oxygen he needs to go SNF. CN made aware.
--- NOTE | 2019-09-11 14:54 | NUR ---
NURSE NOTES: Patient refused to wear oxygen, is on room air for 1 hour. O2 sat re-checked every 15 minutes. Latest O2 sat 94% on room air. When patient asked for the name of hotel he wants to go, patient stated give me minutes i cannot remember the name for now.
--- NOTE | 2019-09-11 16:22 | NUR ---
NURSE NOTES: Patient is on room air more than 2 hours, O2 sat 94%.
--- NOTE | 2019-09-11 16:29 | NUR ---
NURSE NOTES: Per Dr. Felder, patient can go home, or where patient being safe and comfortable. Patient stated wanted to go [facility], located [address] [id number]. Requesting taxi voucher. CN and shed workers supervisor made aware. Called [facility] that patient will not be transferred, spoke with STEPHANI Strong.
--- NOTE | 2019-09-11 17:36 | Pulmonology Progress Note ---
Assessment/Plan Assessment/Plan Pulmonary Progress Note HPI: The patient is a 74-year-old male with history of hypertensive heart disease, CHF, COPD. The patient presents with worsening shortness of breath. Overall, the patient denies any fevers or chills. The patient seen, evaluated, and admitted. X-rays obtained, suggest pulmonary edema and possible airspace congestion. The patient's medications reviewed and the patient currently off antibiotics on diuresis. The patient on oxygen at present. X-ray does show pulmonary edema as mentioned. The patient's findings reviewed. No sputum production. The patient has a mild cough. The patient has no ill contacts or recent travel. PAST MEDICAL HISTORY: Pacemaker, COPD, CHF, and hypertensive heart disease. SOCIAL HISTORY: Previous heavy smoker. Nonsmoker and nondrinker at present. Retired. Much improved PHYSICAL EXAMINATION: Vital signs noted GENERAL: A well-developed male, comfortable at present. VITAL SIGNS NOTED NECK: Supple. The patient has no jugular venous distention. LUNGS: Moderate breath sounds, bibasilar crackles. CARDIAC: S1 and S2. Regular rate and rhythm. Systolic murmur noted. ABDOMEN: Overall soft, nontender, nondistended. EXTREMITIES: No cyanosis or clubbing. No other changes. Mild edema noted. NEUROLOGIC: Grossly nonfocal. LABORATORY DATA NOTED: Reviewed. Hemoglobin 12.4, white count normal. Chemistries, potassium 3.3, BUN 28, creatinine 1.7, albumin is 2.8. The x-rays with evidence of pulmonary edema. IMPRESSION: 1. Respiratory distress - improving 2. Pulmonary edema. 3. Mild hypoxemia. 4. Mild anemia, possibly chronic renal failure. 5. Severe protein-calorie malnutrition. PLAN: Supportive care. Intravenous diuresis. Monitor x-ray for clearing. Oxygen therapy as needed. Respiratory care as needed. Followup further changes and recommendation on low-flow oxygen present and stable. We will optimize care and reassess. At present, continue to wean Solu-Medrol, but hope to taper over the next 48 hours. Continue respiratory therapy as outlined and monitor for worsening pulmonary congestion. Subjective ROS Limited/Unobtainable: No Allergies: Coded Allergies: LISINOPRIL (Verified Allergy, Unknown, 09/04/19) Objective Last 24 Hour Vital Signs Date Time Temp Pulse Resp B/P (MAP) Pulse Ox O2 Delivery O2 Flow Rate FiO2 09/11/19 16:00 97.4 70 18 120/68 (85) 94 09/11/19 13:24 114/70 09/11/19 13:00 97.6 72 18 114/70 (85) 83 09/11/19 12:00 97.6 72 18 114/70 (85) 96 09/11/19 09:00 Nasal Cannula 2.0 09/11/19 08:45 71 123/80 09/11/19 08:44 123/80 09/11/19 08:00 76 09/11/19 08:00 97.6 71 18 123/80 (94) 96 09/11/19 07:59 94 Room Air 21 09/11/19 07:58 82 22 99 Room Air 21 75 22 94 09/11/19 04:00 75 09/11/19 04:00 97.3 75 19 127/82 (97) 100 09/11/19 00:00 72 09/11/19 00:00 97.2 72 18 120/76 (91) 100 09/10/19 23:24 70 24 100 Room Air 21 68 24 98 09/10/19 21:45 66 103/52 09/10/19 21:00 Nasal Cannula 2.0 09/10/19 20:45 95 Room Air 21 09/10/19 20:00 66 103/52 (69) 99 09/10/19 20:00 72 Intake and Output 09/10/19 09/11/19 19:00 07:00 Intake Total 1200 ml Balance 1200 ml Intake Oral 1200 ml # Voids 5 2 Current Medications Medications (Trade) Dose Ordered Sig/Raul Route PRN Reason Start Time Stop Time Status Last Admin Dose Admin Albuterol/ Ipratropium (Albuterol/ Ipratropium) 3 ml Q4H PRN HHN Shortness of breath 09/10/19 15:15 09/15/19 15:14 09/11/19 07:57 Apixaban (Eliquis) 5 mg BID ORAL 09/05/19 09:00 10/05/19 08:59 09/11/19 08:44 Carvedilol (Coreg) 6.25 mg EVERY 12 HOURS ORAL 09/05/19 09:00 10/05/19 08:59 09/11/19 08:45 Furosemide (Lasix) 40 mg DAILY ORAL 09/10/19 09:00 10/10/19 08:59 09/11/19 08:44 Guaifenesin/ Dextromethorphan (Robitussin DM Syrup) 10 ml FOUR TIMES A DAY ORAL 09/08/19 10:45 10/08/19 10:44 09/11/19 13:25 Isosorbide Dinitrate (Isordil) 40 mg THREE TIMES A DAY ORAL 09/05/19 09:00 10/05/19 08:59 09/11/19 13:24 Lorazepam (Ativan) 1 mg Q6H PRN ORAL For Anxiety 09/11/19 00:15 09/17/19 15:44 09/11/19 14:50 Potassium Chloride (K-Dur) 40 meq BID ORAL 09/05/19 09:00 10/05/19 08:59 09/11/19 08:44 Prednisone (predniSONE) 15 mg DAILY ORAL 09/11/19 09:00 10/11/19 08:59 09/11/19 08:45 Zolpidem Tartrate (Ambien) 5 mg HSPRN PRN ORAL Insomnia 09/08/19 23:45 09/15/19 23:44 09/09/19 00:04 Alex Castillo MD Sep 11, 2019 17:36
--- NOTE | 2019-09-11 18:20 | NUR ---
NURSE NOTES: Called Taxi 3rd time, all units are in service, will call when the driver/merchandiser available.
--- NOTE | 2019-09-11 19:20 | NUR ---
NURSE NOTES: Patient discharged to home per Dr. Felder. Patient educated for medication and resources given for homeless. Patient discharged with all belongings, singed paper, monitor car operator removed and returned to secured entrance monitor. IV removed, ID band removed and placed in shredder. Patient Aox4, taking taxi per patient preference. Prescription given to the patient, medication brought from home given back to patient.
--- NOTE | 2019-09-12 05:45 | Progress Note ---
DATE: 09/11/2019 SUBJECTIVE: The patient feels better. Some shortness of breath with ambulation. OBJECTIVE: VITAL SIGNS: O2 saturation 95% to 96% at rest and with ambulation sometimes down below 89%. LUNGS: Bilateral breath sounds. No wheezing. Few rhonchi. CARDIAC: Regular rhythm and rate. Normal S1 and S2. ABDOMEN: Soft. EXTREMITIES: No edema. IMPRESSION: 1. Chronic hypoxia. 2. Chronic obstructive pulmonary disease. 3. Chronic heart failure, systolic and diastolic. 4. Cardiac defibrillator. 5. Severe protein-calorie malnutrition. PLAN: The patient was offered a snf facility. He refuses. He cannot have home O2 at this time if he does not have a safe place to have it delivered. He is going to go to a hotel for now. I have recommended he go to a snf facility for a short time till he has a definite place to stay, but he refuses. I have given him a prescription of his discharge medications as well as a card for him to follow up with me and Dr. Hoffman as an outpatient. Alex Felder M.D. DR: REYNALDO JOB#: [id number] CC:
--- NOTE | 2019-09-12 08:48 | Discharge Summary ---
Discharge Summary Discharge Summary _ DATE OF ADMISSION: 09/04/2019 DATE OF DISCHARGE: 09/11/2019 DISCHARGED BY: Dr. Hoffman REASON FOR ADMISSION: 74 year old male with past medical history of hypertensive heart disease, congestive heart failure, COPD, presented with worsening shortness of breath . After short evaluation emergency room he was diagnosed with pulmonary edema , CHF exacerbation, acute kidney injury vs chronic renal insufificencty , hypokalemia Potassium 2.4. Magnesium 1.5. Troponin negative. BUN 20, creatinine 1.4 Chest x-ray revealed pulmonary edema and cardiomegaly. Patient subsequently admitted to telemetry floor for further management. CONSULTANTS: fitness leader Dr. Felder pulmonary [facility] COURSE: Patient admitted to telemetry floor. Patient started on intravenous diuresis with close monitoring of volumes and cardiorenal parameters. Supplemental oxygen provided and titrated to keep pulse oximetry above 92%. Respiratory care with bronchodilator provided as needed. Patient started on the IV Solu-Medrol with gradual tapering down. Antitussive provided as needed. Volumes were closely monitored. Patient was followed-up with a chest x-ray. ProBNP from 6350 down to 3153. Follow-up chest x-ray revealed some improvement in interstitial and airspace congestion. Preliminary ECHO report revealed severe global hypokinesis and anteroseptal dyskinesis. Left ventricular ejection fraction estimated to be 15%. Pacemaker wire noted in the right-sided chambers. Severely elevated left atrial pressure, grade 3. Moderate to severe mitral regurgitation and moderate aortic regurgitation. Right ventricular systolic pressure of 54 , consistent with a moderate pulmonary hypertension. Anti-failure and antianginal regimen was titrated as per fitness leader. Patient continue on diuretic and beta-mulu. Patient allergic to lisinopril. Isosorbide continued. Lipid panel was stable. TSH within normal limits. Defibrillator interrogation was done. Full anticoagulation with Eliquis continued. Renal parameters and electrolytes were closely monitored . Potassium and magnesium were replaced. Prior to discharge all electrolytes stable. Renal parameters remained at baseline, likely chronic renal insufficiency. Patient was working with physical therapist. Protein calorie protein supplements implemented in plan of care as per certified registered nurse practitioner recommendation. Patient clinically stabilized. Respiratory and cardiac status improved. Steroids changed to oral to complete the course at home. Lasix dose adjusted as by fitness leader. Patient subsequently was ready for discharge home. FINAL DIAGNOSES: COPD exacerbation Acute bronchospasm Acute bronchitis Hypokalemia Hypomagnesemia Acute on chronic heart failure , systolic and diastolic Pulmonary edema Ischemic cardiomyopathy EF 15% Cardiac defibrillator Paroxysmal atrial and ventricular ectopy Ischemic heart disease with stable angina Chronic renal failure Mild anemia Severe protein calorie malnutrition DISCHARGE MEDICATIONS: See Medication Reconciliation list. DISCHARGE INSTRUCTIONS: Patient was discharged home. Follow up with primary care provider in one week. Cardiovascular regimen was adjusted. Anti-failure regimen was maximized. Patient was working with physical therapy. Diuretic therapy was adjusted. Full anticoagulation continued. Steroid taper. Stimulator interrogated showed normal functioning I have been assigned to dictate discharge summary for this account. I was not involved in the patient's management. Ivana Jane NP Sep 12, 2019 08:48
--- NOTE | 2019-09-12 09:36 | Cardiology Report ---
APPROVED REPORT EKG Measurement Heart [id number] <Conclusion> Most likely atrial fibrillation with V-paced on demand as well as VPCs and fusion complexes. ST & T wave abnormality, consider inferior ischemia ST & T wave abnormality, consider anterolateral ischemia Prolonged QT Abnormal ECG
== END 2019-09-11 19:11 | disposition home or self-care (01) | DRG 291 ==
LOC: EDBD 23:58 → EMR 23:59 → 2W 09-05 00:41 → EDBEDREQSVC 09-05 01:01 → EDBEDREQ 09-05 03:37 → 2E 09-06 08:20
DX: I13.0 Hypertensive heart and chronic kidney disease with heart failure and stage 1 through stage 4 chronic kidney disease, or unspecified chronic kidney disease (principal); I50.43 Acute on chronic combined systolic (congestive) and diastolic (congestive) heart failure; E43 Unspecified severe protein-calorie malnutrition; N17.9 Acute kidney failure, unspecified; J44.1 Chronic obstructive pulmonary disease with (acute) exacerbation; E87.6 Hypokalemia; N18.9 Chronic kidney disease, unspecified; E78.5 Hyperlipidemia, unspecified; Z95.810 Presence of automatic (implantable) cardiac defibrillator; Z87.891 Personal history of nicotine dependence; Z88.8 Allergy status to other drugs, medicaments and biological substances; R06.03 Acute respiratory distress; D63.1 Anemia in chronic kidney disease; I34.0 Nonrheumatic mitral (valve) insufficiency; I35.1 Nonrheumatic aortic (valve) insufficiency; J20.9 Acute bronchitis, unspecified; I25.5 Ischemic cardiomyopathy; E83.42 Hypomagnesemia; I49.1 Atrial premature depolarization; I49.3 Ventricular premature depolarization; I25.118 Atherosclerotic heart disease of native coronary artery with other forms of angina pectoris; R09.02 Hypoxemia
CPT/HCPCS: 36415; 36600; 71045; 71046; 80048; 80053; 80061; 82248; 82803; 83735; 83880; 84443; 84484; 85025; 87081; 93005; 93306; 94640; 96374; 99285; J7620; J8499